=== PATIENT | female | born 1990 | race Caucasian/White ===

== ENCOUNTER → 2020-03-12 14:24 | Outpatient (BNVA) | payer OTHER, SELFPAY | PROVIDERS: PCP Internal Medicine; Visit Provider Surgery ==

== ENCOUNTER 2020-04-03 17:56 | Emergency (ER) | payer OTHER, MEDICAID, SELFPAY ==
--- NOTE | ~2020-04-03 | XR_ITS ---
EXAMINATION: CHEST 1 VIEW CLINICAL INFORMATION: Palpitations. COMPARISON: None. TECHNIQUE: An AP view of the chest is provided. FINDINGS: The cardiac silhouette is not enlarged. The mediastinal and hilar contours are unremarkable. There are neither pleural effusions nor pneumothoraces. There are no consolidations. The osseous structures are unremarkable. XR/XR chest 1V IMPRESSION: No evidence for acute disease.
--- NOTE | 2020-04-03 18:07 | ECG_ITS ---
Test Reason : palpitations Blood Pressure : / mmHG Vent. Rate : 079 BPM Atrial Rate : 079 BPM P-R Int : 126 ms QRS Dur : 098 ms QT Int : 404 ms P-R-T Axes : 061 050 029 degrees QTc Int : 463 ms Normal sinus rhythm with sinus arrhythmia Normal ECG No previous ECGs available Referred By: Generic ED Physician Electronically Signed By:THOMAS CHAVEZ MD
[2020-04-03 19:42] VITALS: BP 127/78; PULSE 81; RESP 18; TEMP 37.1; O2SAT 100; BMI 26.5
--- NOTE | 2020-04-03 21:37 | ED.ARRPALP ---
HPI - Arrhythmia/Palpitations General Chief Complaint: Arrhythmia/Palpitations Stated Complaint: palpitations Time Seen by Provider: 04/03/20 20:50 Source: patient Mode of arrival: ambulatory Limitations: no limitations History of Present Illness HPI narrative: A 29-year-old female otherwise healthy presented palpitation/skipping beats, symptoms started 7-10 days ago, symptoms described as intermittent, symptoms described as mild, nothing triggered the symptoms, nothing make it better, nothing makes it worse, patient admitted to drinking a lot of caffeinated soda during the day, complaining of mild shortness of breath when she has the episodes of palpitation. Patient also has been complaining of back pain related to this pain to long hours sitting at work. No recent trauma or falling. No urinary tract infection symptoms. Related Data Home Medications Medication Instructions Recorded Confirmed norethindrone acetate 1 mg-ethinyl 1 tab PO DAILY 03/16/20 03/16/20 estradiol 20 mcg tablet Previous Rx's Medication Instructions Recorded amoxicillin 875 mg-potassium 1 tab PO BID 10 Days #20 tab 02/13/20 clavulanate 125 mg tablet nitroglycerin 0.4 % (w/w) rectal 1 inch AK BID #30 g 03/12/20 ointment clobetasol 0.05 % topical cream 1 appl TOPICAL BID 7 Days #15 g 03/16/20 Allergies Allergy/AdvReac Type Severity Reaction Status Date / Time No Known Allergies Allergy Verified 04/03/20 19:42 Review of Systems Review of Systems: All other systems are reviewed and are negative Constitutional: Reports as per HPI and Reports no additional constitutional complaints Eyes: Reports as per HPI and Reports no additional eye complaints Reports system reviewed and no additional complaints, except as documented Cardiovascular: Reports as per HPI and Reports no additional cardiovascular complaints Respiratory: Reports as per HPI and Reports no additional respiratory complaints Gastrointestinal: Reports as per HPI and Reports no additional gastrointestinal complaints Genitourinary: Reports no additional female genitourinary complaints Musculoskeletal: Reports no additional musculoskeletal complaints Skin/Breast: Reports system reviewed and no additional complaints, except as docu Psychiatric: Reports no additional psychiatric complaints Endocrine: Reports no additional endocrine complaints Hematologic/Lymphatic: Reports no additional hematologic/lymphatic complaints Allergic/Immunologic: Reports no additional allergic/immunologic complaints Reports system reviewed and no additional complaints, except as documented and Reports Abnormal speech present [facility] Past Medical History Medical History Anal fissure Eczema Social History Social History Alcohol intake: never Smoked in Last 30 Days: No Use of substances other than those prescribed or required for medical reasons: No Any prior treatment program specific to substance use: No Advance Directives: No Advance Directives Information Provided: Yes Physical Exam Vital Signs: Vital Signs: Last Vital Signs Temp 98.7 F 04/03/20 19:42 Pulse 83 04/03/20 22:22 Resp 13 04/03/20 22:22 BP 116/72 04/03/20 22:22 Pulse Ox 100 04/03/20 22:22 Body Mass Index 26.5 Vital signs have been reviewed as appeared to be correct. Blood pressure normal. Heart rate normal. Respiration rate normal. Temperature normal. Oxygen saturation normal. Appearance: Alert. Oriented X3. No acute distress. Head: Normal external exam. Normocephalic. Atraumatic. No Mcmillan signs noted. No raccoon eyes noted Eyes: PERRLA. EOMI. Conjunctiva and sclera normal. Eyelids normal. ENT: TM's Normal. Pharynx normal. Uvula midline. Moist mucous membranes. No trismus noted. No drooling noted. No muffled voice noted. Neck: Normal inspection. Neck supple. FROM. No adenopathy. Thyroid Normal. No meningeal signs. No neck mass noted. CVS: Normal heart rate and rhythm. Heart sound normal. No murmurs noted. Pulses normal throughout. Respiratory: No respiratory distress. Painless inspiration. Breath sounds normal. No wheezes/rales/rhonchi noted. Chest nontender. No accessory muscle usage noted or decreased air movement noted. Abdomen: Soft and nontender. Bowel sounds normal in all 4 quadrants. No distention noted. No organomegaly noted. No visible injury noted. Back: No CVA tenderness. Full range of motion noted. No tenderness, no step-off, no deformity. Skin: Skin warm and dry. Normal skin color. Normal skin turgor. No rashes/lesions/lacerations noted. Extremities: No lower extremity edema. Extremities exhibit normal range of motion. Extremities nontender. Neuro: Oriented X 3. No motor deficit. No sensory deficit. Reflexes normal. Course Course Course Narrative: Assessment and plan. 29-year-old female came in with 7-10 days of chest pain/palpitation. EKG is unremarkable, chest x-ray is unremarkable, labs including troponin/D-dimer unremarkable. Patient has unrelated lower back pain patient think it is related to many hours sitting at work. But no recent trauma or fall. Patient is unable to give urine patient decline symptoms for UTI, patient also declined chance of being . MDM - Arrhythmia/Palpitations Lab Data Attestation: I reviewed the patient's lab results. Result diagrams: 04/03/20 21:40 04/03/20 21:40 Labs: Lab Results 04/03/20 04/03/20 04/03/20 Range/Units 21:40 21:40 21:40 WBC 5.8 (4.8-10.8) X10*3/uL RBC 4.49 (4.20-5.50) X10*6/uL Hgb 13.5 (12.0-16.0) g/dl Hct 39.4 (37-47) % MCV 87.8 (80-98) fL MCH 30.1 (27.0-33.0) pg MCHC 34.3 (31.0-35.0) g/dl RDW 11.6 (11.0-16.0) % Plt Count 171 (160-400) X10*3/uL MPV 12.1 (9.4-12.3) fL Immature Gran % (Auto) 0.2 (0.0-0.4) % Neut % (Auto) 61.6 (45-73) % Lymph % (Auto) 29.8 (20-40) % Latimer % (Auto) 6.9 (2-11) % Eos % (Auto) 1.0 (0-4) % Baso % (Auto) 0.5 (0-2) % Lymph # (Auto) 1.7 (1.2-4.9) X10*3/uL Latimer # (Auto) 0.4 (0.1-1.2) X10*3/uL Eos # (Auto) 0.1 (0.0-0.4) X10*3/uL Baso # (Auto) 0.0 (0.0-0.2) X10*3/uL Abs Immat Gran (auto) 0.01 (0.00-0.03) X10*3/uL Absolute Neuts (auto) 3.6 (2.0-8.3) X10*3/uL Absolute Nucleated RBC 0.000 (0.0-0.012) X10*3/uL Nucleated RBC % (auto) 0.0 (0.0-0.2) /100WBC D-Dimer < 200 NG/ML Sodium 140 (135-145) mmol/L Potassium 3.3 (3.3-5.1) mmol/L Chloride 106 (96-108) mmol/L Carbon Dioxide 24 (22-29) mmol/L Anion Gap 13 (12-20) BUN 5 L (9-16) mg/dL Creatinine 0.65 (0.5-1.4) mg/dL Estim Creat Clear Calc 120.4 Estimated GFR > 60 Random Glucose 101 (60-115) mg/dL Calcium 9.0 (8.4-10.2) mg/dL Troponin I High Sens (<3.5-17.0) ng/L B-Natriuretic Peptide (<100) pg/mL Urine Color Urine Appearance Urine pH (5.0-8.0) Ur Specific [place] (1.005-1.025) Urine Protein (NEG-TRACE) MG/DL Urine Glucose (UA) (NEG) MG/DL Urine Ketones (NEG) MG/DL Urine Blood (NEG) Urine Nitrite (NEG) Ur Leukocyte Esterase (NEG) Urine RBC (0) /HPF Urine WBC (0-4) /HPF Ur Squamous Epith Cells /LPF Urine Bacteria /LPF 04/03/20 04/03/20 Range/Units 21:40 21:40 WBC (4.8-10.8) X10*3/uL RBC (4.20-5.50) X10*6/uL Hgb (12.0-16.0) g/dl Hct (37-47) % MCV (80-98) fL MCH (27.0-33.0) pg MCHC (31.0-35.0) g/dl RDW (11.0-16.0) % Plt Count (160-400) X10*3/uL MPV (9.4-12.3) fL Immature Gran % (Auto) (0.0-0.4) % Neut % (Auto) (45-73) % Lymph % (Auto) (20-40) % Latimer % (Auto) (2-11) % Eos % (Auto) (0-4) % Baso % (Auto) (0-2) % Lymph # (Auto) (1.2-4.9) X10*3/uL [place]imer # (Auto) (0.1-1.2) X10*3/uL Eos # (Auto) (0.0-0.4) X10*3/uL Baso # (Auto) (0.0-0.2) X10*3/uL Abs Immat Gran (auto) (0.00-0.03) X10*3/uL Absolute Neuts (auto) (2.0-8.3) X10*3/uL Absolute Nucleated RBC (0.0-0.012) X10*3/uL Nucleated RBC % (auto) (0.0-0.2) /100WBC D-Dimer NG/ML Sodium (135-145) mmol/L Potassium (3.3-5.1) mmol/L Chloride (96-108) mmol/L Carbon Dioxide (22-29) mmol/L Anion Gap (12-20) BUN (9-16) mg/dL Creatinine (0.5-1.4) mg/dL Estim Creat Clear Calc Estimated GFR Random Glucose (60-115) mg/dL Calcium (8.4-10.2) mg/dL Troponin I High Sens < 3.5 (<3.5-17.0) ng/L B-Natriuretic Peptide < 10 (<100) pg/mL Urine Color YELLOW Urine Appearance CLEAR Urine pH 6.5 (5.0-8.0) Ur Specific [place] 1.010 (1.005-1.025) Urine Protein NEG (NEG-TRACE) MG/DL Urine Glucose (UA) NEG (NEG) MG/DL Urine Ketones 15 (NEG) MG/DL Urine Blood 3+ H (NEG) Urine Nitrite NEG (NEG) Ur Leukocyte Esterase NEG (NEG) Urine RBC 1-4 (0) /HPF Urine WBC 0-2 (0-4) /HPF Ur Squamous Epith Cells TRACE /LPF Urine Bacteria 1+ /LPF Imaging Data Chest x-ray: Radiologist's impression: No evidence for acute disease. ECG Data Interpretation: Normal sinus rhythm at 80 BPM, normal axis deviation, normal intervals, no ST-T changes. Discharge Plan Discharge Clinical Impression: Palpitations Patient Disposition: Home, Self-Care Instructions: Heart Palpitations (ED) Prescriptions: No Action amoxicillin-pot clavulanate 875-125 mg tablet 1 tab PO BID 10 Days Qty: 20 RF: 0 norethindrone ac-eth estradiol 1-20 mg-mcg tablet 1 tab PO DAILY RF: 0 clobetasol 0.05 % cream 1 appl topical BID 7 Days Qty: 15 RF: 1 Rectiv 0.4 % (w/w) ointment 1 inch AK BID Qty: 30 RF: 0 Referrals: Jose Smith MD [Physician] - 2 days
[2020-04-03 21:45] LABS: MANUAL DIFF FLAG NO
[2020-04-03 21:51] LABS: Basophils Percent Auto 0.5 % (0-2); Eosinophils Absolute Auto 0.1 X10*3/uL (0.0-0.4); Hematocrit 39.4 % (37-47); Hemoglobin 13.5 g/dl (12.0-16.0); Imm Gran Abs Auto 0.01 X10*3/uL (0.00-0.03); Imm Gran Pct Auto 0.2 % (0.0-0.4); Lymphocytes Absolute Auto 1.7 X10*3/uL (1.2-4.9); Lymphocytes Percent Auto 29.8 % (20-40); Mean Corpuscular HGB Conc 34.3 g/dl (31.0-35.0); Mean Corpuscular Hemoglobin 30.1 pg (27.0-33.0); Mean Corpuscular Volume 87.8 fL (80-98); Mean Platelet Volume 12.1 fL (9.4-12.3); Monocytes Absolute Auto 0.4 X10*3/uL (0.1-1.2); Monocytes Percent Auto 6.9 % (2-11); Neutrophils Absolute Auto 3.6 X10*3/uL (2.0-8.3); Neutrophils Percent Auto 61.6 % (45-73); Platelet Count 171 X10*3/uL (160-400); Red Blood Count 4.49 X10*6/uL (4.20-5.50); Red Cell Distribution Width 11.6 % (11.0-16.0); White Blood Count 5.8 X10*3/uL (4.8-10.8)
[2020-04-03 21:59] LABS: Glucose Urine UA NEG (NEG); Leukocyte Esterase Urine NEG (NEG); Nitrite Urine NEG (NEG); PH 6.5 (5.0-8.0); Urine Blood 3+ (NEG); Urine Ketones 15 MG/DL (NEG); Urine Protein NEG (NEG-TRACE)
[2020-04-03 22:00] LABS: D Dimer < 200 NG/ML
[2020-04-03 22:10] LABS: Anion Gap 13 (12-20); Blood Urea Nitrogen 5 mg/dL (9-16); Carbon Dioxide 24 mmol/L (22-29); Chloride 106 mmol/L (96-108); Creatinine Clr Calc Pharmacy 120.4; Estimated Glomerular Filt Rate > 60; Glucose Random 101 mg/dL (60-115); Potassium 3.3 mmol/L (3.3-5.1); Sodium 140 mmol/L (135-145)
[2020-04-03 22:11] LABS: Appearance Urine CLEAR; Color Urine YELLOW
[2020-04-03 22:16] LABS: Bacteria Urine 1+ /LPF; Squamous Epithelial Cell Urine TRACE /LPF; WBC Urine 0-2 /HPF (0-4)
[2020-04-03 22:18] LABS: B Type Natriuretic Peptide < 10 pg/mL (<100); Troponin-I High Sensitivity < 3.5 ng/L (<3.5-17.0)
[2020-04-03 22:22] VITALS: BP 116/72; PULSE 83; RESP 13; O2SAT 100
--- NOTE | 2020-04-03 22:23 | PC.NURSE ---
pt has been on monitor since arrival.
--- NOTE | 2020-04-03 23:14 | PC.NURSE ---
PT HAS BEEN EATING AND DRINKING WITHOUT ISSUE.
== END 2020-04-03 23:29 | disposition home or self-care (01) ==
PROVIDERS: Emergency Provider Emergency Medicine; PCP Internal Medicine
DX: R00.2 Palpitations (principal); Z79.3 Long term (current) use of hormonal contraceptives
CPT/HCPCS: 36415; 71045; 80048; 81001; 81003; 83880; 84484; 85025; 85379; 93005; 99283; 99284

== ENCOUNTER 2020-04-05 14:54 | Outpatient (REF) | payer OTHER, MEDICAID, SELFPAY ==
[2020-04-05 17:15] LABS: TSH reflex Free T4 0.42 uIU/mL (0.32-4.0)
[2020-04-06 06:06] LABS: Thyroid Peroxidase Antibodies <1 IU/mL (<9)
== END 2020-04-05 14:55 | disposition home or self-care (01) ==
LOC: HO.HMGCLDS 14:54
PROVIDERS: PCP Internal Medicine; Visit Provider Internal Medicine
DX: R00.2 Palpitations (principal)
CPT/HCPCS: 36415; 84443; 86376

== ENCOUNTER → 2020-04-10 12:40 | Outpatient (BNVA) | payer OTHER, MEDICAID, SELFPAY | PROVIDERS: PCP Internal Medicine; Visit Provider Internal Medicine Cardiovascular Disease ==

== ENCOUNTER → 2020-04-17 07:34 | Outpatient (REF) | payer OTHER, MEDICAID, SELFPAY ==
--- NOTE | 2020-04-17 07:37 | CA_ITS ---
Transthoracic Echocardiogram Patient (Last, First, Middle): May Martinez, Gender: Female Date of : 1990 Age: 29 Procedure Date: 04/17/2020 Procedure Type: Transthoracic Echocardiogram Location: OP Height: 160.02 cm Weight: 68.04 kg BSA: 1.71 m2 Heart Rate: bpm BP: 118 / 56 mmHg Manager Ui: Referring MD: Jose Smith MD Symptoms: R00.2 - Palpitations Study Quality: Good ECG Rhythm: Sinus Conclusions: - The left ventricular systolic function is normal. The visually estimated ejection fraction is between 60-65%. - No obvious valvular pathology seen on this study. Findings Left Ventricle Normal left ventricular cavity size. There is normal left ventricular wall thickness. The left ventricular systolic function is normal. The visually estimated ejection fraction is between 60-65%. There is no evidence of regional wall motion abnormalities. Diastolic function is normal for age. Right Ventricle Normal right ventricular cavity size and systolic function. Atria The left atrium is normal in size. The right atrium is normal in size. Aortic Valve There is a normal trileaflet aortic valve. There is no aortic valve stenosis. There is no aortic valve regurgitation. Mitral Valve The mitral valve appears normal. There is no mitral valve regurgitation. There is no mitral valve stenosis. Pulmonic Valve The pulmonic valve was not well visualized. Tricuspid Valve Normal tricuspid valve structure. There is trace tricuspid valve regurgitation. The pulmonary artery systolic pressure is normal. Great Vessels The aortic annulus, sinuses of valsalva, and asc aorta are normal in size. Venous The inferior vena cava is normal in size and collapses greater than 50% with inspiration. Pericardium/Pleural There is no evidence of pericardial effusion. Prior Study Comparison No prior study available for comparison. Recommendations, Care & Conclusions No obvious valvular pathology seen on this study. Measurements 2D Linear Measurements IVSd: 0.88 0.6-0.9/0.6-1.0 cm LVIDd: 4.68 3.9-5.3/4.2-5.9 cm LVIDd Index: 2.74 2.4-3.2/2.2-3.1 cm/m2 LVIDs: 2.76 2.0-3.6 cm LVPWd: 0.97 0.7-1.1 cm Ao Root: 2.80 2.1-3.5 cm LA Diam: 3.10 2.7-3.8/3.0-4.0 cm LAIDs Index: 1.81 1.5-2.3 cm/m2 LV Mass: 182.71 67-162/88-224 g LV Mass Index: 106.85 43-95/49-115 g/m2 LVOT Diam: 2.30 3.0+(-)1.3 cm Mitral Valve MV Pk E: 0.62 MV PK A: 0.75 MV Decel Time: 116.00 E/A: 0.80 E'Lateral: 12.00 E'Medial: 7.64 E/E' Med: 8.10 E/E' Lat: 5.10 PHT: 34.00 MVA PHT: 6.47 Decel Mcdonough: 5.30 Aortic Valve AoV Pk Enrrique: 1.25 AoV Mn Enrrique: 0.86 AoV VTI: 0.26 AoV Pk Grad: 6.00 Aov Mn Grad: 4.00 CRISSY Cont.VTI: 3.48 LVOT LVOT Pk Enrrique: 1.01 LVOT Mn Enrrique: 0.65 LVOT VTI: 0.22 LVOT Pk Grad: 4.00 LVOT Mn Grad: 2.00 LVOT Diam: 2.30 LVOT Area: 4.15 Diastolic Function MV Pk E: 0.62 MV Pk A: 0.75 E/A: 0.80 E'Medial: 7.64 E/E' Med: 8.10 E' Laterial: 12.00 E/E' Lat: 5.10 Tricuspid Valve TR Pk Enrrique: 1.96 TR Pk Grad: 15.00 RA Press: 3.00 RVSP: 18.00 Great Vessels Aorta Ao Root-2D: 2.80 2.0-3.7 cm Ao Asc: 3.10 2.1-3.4 cm Pulmonary Valve PV Pk Enrrique: 0.96 Peak PV Grad: 4.00 Updated in Other Vendor System with Status of Final Angel Albarran MD electronically signed on 04/17/2020 4:00:50 PM with status of Final
== END ==
LOC: HO.CARD 07:34
PROVIDERS: PCP Internal Medicine; Visit Provider Internal Medicine Cardiovascular Disease
DX: R00.2 Palpitations (principal)
CPT/HCPCS: 93306

== ENCOUNTER → 2020-04-19 10:01 | Outpatient (REF) | payer OTHER, MEDICAID, SELFPAY ==
--- NOTE | 2020-04-23 11:25 | ECG_ITS ---
Hook-up date: 2020-04-19 16:16:00 Duration: 47:59:00 Test Indications: PALPITATIONS Medications: [id number] QRS complexes 83 Ventricular ectopics which represent <1 % of total QRS comp. * Supraventricular ectopics which represent % of total QRS comp. * Paced QRS complexs which represent % of total QRS comp. VENTRICULAR ECTOPY 83 Isolated 0 Bigeminal Cycles 0 Couplets 0 Runs 0 Beats in Runs * Beats LONGEST at * BPM at :: -- * Beats FASTEST at * BPM at :: -- SUPRAVENTRICULAR ECTOPY * Isolated * Couplets * Runs * Beats in Runs * Beats LONGEST at * BPM at :: -- * Beats FASTEST at * BPM at :: -- HEART RATES 45 MIN at 03:43:00 2020-04-20 75 AVG 133 MAX at 10:36:21 2020-04-21 LONGEST RR 1.6000 secs at 05:07:27 2020-04-20 S-T LEVELS Channel 1 - 128 mm at 16:16:00 2020-04-19 - 128 mm at 16:16:00 2020-04-19 Channel 2 - 128 mm at 16:16:00 2020-04-19 - 128 mm at 16:16:00 2020-04-19 Channel 3 - 128 mm at 03:53:51 -- - 128 mm at 03:53:51 Basic rhythm Normal sinus rhythm No long pause or profound bradycardia Rare Premature atrial complexes Patient reported skipped beats correlated with NSR Referred By: Jose Smith Overread By: JOSE SMITH MD
== END ==
LOC: HO.CARD 10:01
PROVIDERS: Visit Provider Internal Medicine Cardiovascular Disease
DX: R00.2 Palpitations (principal)
CPT/HCPCS: 93226

== ENCOUNTER → 2020-04-19 15:11 | Outpatient (BNVA) | payer OTHER, MEDICAID, SELFPAY | PROVIDERS: PCP Internal Medicine; Visit Provider Internal Medicine Cardiovascular Disease ==

== ENCOUNTER → 2020-05-08 10:36 | Outpatient (BNVA) | payer OTHER, MEDICAID, SELFPAY | PROVIDERS: PCP Internal Medicine; Visit Provider Nurse Practitioner Family ==

== ENCOUNTER 2021-03-22 21:54 | Emergency (ER) | payer OTHER, MEDICAID, SELFPAY ==
[2021-03-22 23:06] VITALS: BP 117/78; PULSE 77; RESP 16; TEMP 36.8; O2SAT 100; BMI 26.2
[2021-03-22] MEDS: diphenhydrAMINE HCL 25 MG TABLET PO (23:36)
[2021-03-22] MEDS: Famotidine 20 MG TABLET PO (23:36)
--- NOTE | 2021-03-22 23:53 | ED.ALLEREA ---
HPI - Allergic Reaction General Chief complaint: Allergic Reaction Stated complaint: allegric reaction? Time Seen by Provider: 03/22/21 23:11 Source: patient Mode of arrival: ambulatory History of Present Illness HPI narrative: 30-year-old female with no significant past medical history presenting to the ED complaining lip swelling and tingling s/p eating [place] food around 20:30. Also reports discomfort in throat. Denies intraoral swelling, difficulty breathing, coughing, wheezing, difficulty swallowing/handling secretions, SOB, rash. Denies known allergens/new exposures MD complaint: allergic reaction Onset (ago): hour(s) Related Data Home Medications Medication Instructions Recorded Confirmed norethindrone acetate 1 mg-ethinyl 1 tab PO DAILY 03/16/20 05/08/20 estradiol 20 mcg tablet Previous Rx's Medication Instructions Recorded ondansetron HCl 4 mg tablet 4 mg PO Q12H PRN #14 tab 04/05/20 cetirizine 10 mg capsule (Zyrtec) 10 mg PO DAILY PRN #10 cap 03/22/21 diphenhydramine HCl 25 mg tablet 25 mg PO Q6H PRN #14 tab 03/22/21 (Benadryl Allergy) Allergies Allergy/AdvReac Type Severity Reaction Status Date / Time No Known Allergies Allergy Verified 04/16/20 00:31 Review of Systems Review of Systems: Constitutional: No Fever, No Chills, No Fatigue, No Malaise ENT/Mouth: No Ear Pain, No Nasal Congestion, No Sinus Pain, No Hoarseness, No sore throat, No Rhinorrhea, No Swallowing Difficulty, +lip swelling Eyes: No Eye Pain, No Swelling, No Redness Cardiovascular: No Chest Pain, No SOB, No Dyspnea on Exertion, No Orthopnea, No Edema, No Palpitations Respiratory: No Cough, No Sputum, No Wheezing, No Dyspnea Gastrointestinal: No Nausea, No Vomiting, No Diarrhea, No Constipation, No Abdominal pain Genitourinary: No Dysuria, No Urinary Frequency, No Hematuria, No Flank Pain Musculoskeletal: No joint pain, No Myalgias, No Joint Swelling Skin: No Skin Lesions, No rash Neuro: No Weakness Yes all other systems are reviewed and are negative PMFSH Past Medical History Attestation statement: The following information was validated with the patient. Medical History Anal fissure Eczema Intermittent palpitations Nausea Family History Family History Father No problems noted. Mother No problems noted. Social History Social History Alcohol intake: never Advance Directives: No Advance Directives Information Provided: No Patient : No Physical Exam Vital Signs: Vital Signs: Last Vital Signs Temp 98.3 F 03/22/21 23:06 Pulse 77 03/22/21 23:06 Resp 16 03/22/21 23:06 BP 117/78 03/22/21 23:06 Pulse Ox 100 03/22/21 23:06 BMI result Body Mass Index 26.2 Const: General: cooperative, healthy appearing, no acute distress, alert and awake Orientation/consciousness: patient oriented x3 Limitations: no limitations HENMT: Other: + mild swelling to right side of lower lip. No angioedema, no upper lip involvement. No intraoral involvement, uvula midline, talking in complete sentences Head: Yes normal to inspection Ears: hearing grossly normal bilaterally General nose exam: Normal external nose present Mouth: Normal oral and palatal mucosa present, no audible dysphonia and no drooling Throat: Yes posterior oropharynx normal, Yes tonsils normal, Yes uvula midline, No peritonsillar mass, No uvula laterally displaced and No uvular edema Eyes: General: appearance normal, both eyes and all related structures EOM: EOMs intact bilaterally Neck: Neck: Yes normal visual inspection, Yes no lymphadenopathy, Yes no meningeal signs, Yes trachea midline, Yes supple and No anterior neck swelling Resp: Effort & Inspection: normal respiratory effort, no stridor and not tachypneic Auscultation: clear to auscultation bilaterally, no rales, no rhonchi and no wheezes Cardio: Rate: regular rate Heart sounds: S1 normal heart sound present and S2 normal heart sound present GI: Inspection: Yes normal to inspection Skin: Rashes: no rashes Wounds: no wounds Neuro: General: patient oriented x3 and no meningeal signs Gait exam (Neuro): Normal gait present Extrem: General: Yes normal to inspection MDM - Allergic Reaction MDM Narrative Medical decision making narrative: 30-year-old female with no significant past medical history presenting to the ED complaining lip swelling and tingling s/p eating [place] food around 20:30. On exam vital signs stable, NAD, nontoxic appearing, physical exam as above, mild swelling noted to right side of lower lip. Likely allergic reaction. Plan: P.o. Benadryl/Pepcid. Discussed worrisome signs and symptoms and strict return precautions and need close follow-up with edge bander operator/PCP Differential Diagnosis Differential diagnosis: Likely allergic reaction and urticaria Medical Records Attestation: I reviewed the patient's medical records. Lab Data Attestation: I reviewed the patient's lab results. Discharge Plan Discharge Clinical Impression: Allergic reaction Patient Disposition: Home, Self-Care Instructions: General Allergic Reaction (ED), Allergy Testing (ED) Additional Instructions: Avoid [place] food/the restaurant you ate from [employer] Take Benadryl as needed for allergic reaction symptoms. Be aware this makes you drowsy, do not drive, drink alcohol, or operate anything while taking You may take Zyrtec during the day If symptoms persist or worsen, you have intraoral swelling, difficulty breathing, coughing, wheezing please return to the ED Please follow-up with your doctor and an edge bander operator Prescriptions: New diphenhydramine HCl [Benadryl Allergy] 25 mg tablet 25 mg PO Q6H PRN (Reason: allergic reaction) Qty: 14 0RF Zyrtec 10 mg capsule 10 mg PO DAILY PRN (Reason: allergy symptoms) Qty: 10 0RF No Action norethindrone ac-eth estradiol 1-20 mg-mcg tablet 1 tab PO DAILY 0RF ondansetron HCl 4 mg tablet 4 mg PO Q12H PRN (Reason: nausea and vomiting) Qty: 14 0RF Referrals: Ifeanyi Patel DO [Physician] - 2 days Interventions: ED Discharge Assessment Last Done: 03/23/21 00:12
== END 2021-03-23 00:14 | disposition home or self-care (01) ==
PROVIDERS: Emergency Provider Emergency Medicine; PCP Internal Medicine
DX: T78.1XXA Other adverse food reactions, not elsewhere classified, initial encounter (principal); L50.9 Urticaria, unspecified; X58.XXXA Exposure to other specified factors, initial encounter
CPT/HCPCS: 99283; Q0163

== ENCOUNTER 2021-04-13 13:29 | Emergency (ER) | payer OTHER, MEDICAID, SELFPAY ==
[2021-04-13 13:41] VITALS: BP 153/84; PULSE 82; RESP 16; TEMP 36.9; O2SAT 100; BMI 25.3
[2021-04-13 13:56] LABS: MANUAL DIFF FLAG NO
[2021-04-13 13:58] LABS: Basophils Percent Auto 0.6 % (0-2); Eosinophils Absolute Auto 0.1 X10*3/uL (0.0-0.4); Eosinophils Percent Auto 2.2 % (0-4); Hematocrit 40.3 % (37.0-47.0); Hemoglobin 13.8 g/dl (12.0-16.0); Imm Gran Abs Auto 0.02 X10*3/uL (0.00-0.03); Imm Gran Pct Auto 0.3 % (0.0-0.4); Lymphocytes Absolute Auto 1.3 X10*3/uL (1.2-4.9); Lymphocytes Percent Auto 19.6 % (20-40); Mean Corpuscular HGB Conc 34.2 g/dl (31.0-35.0); Mean Corpuscular Hemoglobin 30.3 pg (27.0-33.0); Mean Corpuscular Volume 88.4 fL (80.0-98.0); Mean Platelet Volume 11.4 fL (9.4-12.3); Monocytes Absolute Auto 0.4 X10*3/uL (0.1-1.2); Monocytes Percent Auto 5.5 % (2-11); Neutrophils Absolute Auto 4.7 x10*3/uL (2.0-8.3); Neutrophils Percent Auto 71.8 % (45-73); Platelet Count 169 X10*3/uL (160-400); Red Blood Count 4.56 X10*6/uL (4.20-5.50); Red Cell Distribution Width 11.4 % (11.0-16.0); White Blood Count 6.5 X10*3/uL (4.8-10.8)
--- NOTE | 2021-04-13 14:10 | ED_ITS ---
HPI - General Adult General Chief complaint: Dizziness Stated complaint: dizzy nausea Time Seen by Provider: 04/13/21 14:10 Source: patient Limitations: no limitations History of Present Illness HPI narrative: This is a 30-year-old female who complains of episodes of dizziness associated with nausea and her heart racing at times off and on for the last few weeks. She does not have constant symptoms. She noted last night for example that she had feeling of dizziness and nausea and then noted her heart was racing. She noted when she was in the shower that her lower legs felt shaky. She is also at times noted weakness in her arms. She states at times the dizziness is like vertigo, with the room spinning but the dizziness is not worsened when she turns her head or moves. Sometimes is more like a lightheadedness. She denies any headache or neck pain. She denies any visual changes, speech difficulty. She denies any ear pain or new tenderness (notes she has had tenderness in the past which preceded her most recent symptoms). She denies any chest pain or shortness of breath Rich denies abdominal pain. She denies any particular new stress recently. She notes she has had palpitations in the past and had a workup about a year ago and was told it might be anxiety related. She wonders if her current symptoms are not anxiety related pain. She denies any undue stress. She is on control pills, denies other medicines. Related Data Home Medications Medication Instructions Recorded Confirmed norethindrone acetate 1 mg-ethinyl 1 tab PO DAILY 03/16/20 05/08/20 estradiol 20 mcg tablet Previous Rx's Medication Instructions Recorded cetirizine 10 mg capsule (Zyrtec) 10 mg PO DAILY PRN #10 cap 03/22/21 lorazepam 1 mg tablet 1 mg PO TID PRN #12 tab 04/13/21 ondansetron 4 mg disintegrating 4 mg PO Q6H PRN #10 tab 04/13/21 tablet Allergies Allergy/AdvReac Type Severity Reaction Status Date / Time No Known Allergies Allergy Verified 04/11/21 14:19 Review of Systems Review of Systems: Yes all other systems are reviewed and are negative Constitutional: Constitutional: Reports as per HPI, Denies fever(s), Denies headache(s) and Reports weakness (In arms) Eyes: Eyes: Reports as per HPI and Reports no additional eye complaints ENT: Reports system reviewed and no additional complaints, except as documented, Reports as per HPI, Denies headache(s), Denies nasal congestion, Denies nasal discharge and Denies sore throat Cardiovascular: Cardiovascular: Reports as per HPI, Denies chest pain, Reports palpitations and Denies dyspnea Respiratory: Respiratory: Reports as per HPI, Denies cough and Denies dyspnea Gastrointestinal: Gastrointestinal: Reports as per HPI, Denies abdominal pain, Denies diarrhea and Denies vomiting Genitourinary: Genitourinary: Reports as per HPI, Denies hematuria, Denies urinary frequency and Denies dysuria Musculoskeletal: Musculoskeletal: Reports no additional musculoskeletal complaints and Denies numbness Integumentary/Breasts: Skin/Breast: Reports as per HPI and Denies rash Neurologic: Reports as per HPI, Denies Abnormal speech present, Denies headache(s), Denies focal weakness, Denies numbness and Reports weakness (In arms) Psychiatric: Psychiatric: Reports no additional psychiatric complaints and Rep orts as per HPI Endocrine: Endocrine: Reports no additional endocrine complaints, Reports as per HPI and Reports palpitations Hematologic/Lymphatic: Hematologic/Lymphatic: Reports no additional hematologic/lymphatic complaints, Reports as per HPI and Reports other (No peripheral edema) [facility] Past Medical History Medical History (Updated 04/13/21 @ 14:52 by Michael Duggan MD) Anal fissure Eczema Intermittent palpitations Surgical History (Updated 04/11/21 @ 14:38 by Bety Ochoa MD) No pertinent past surgical history Family History Family History Father No problems noted. Mother No problems noted. Social History Social History Housing: Apartment Alcohol intake: never Patient Tobacco Use Status: Never used Tobacco e-Cigarette/Vaping Use: Never Used Advance Directives: No Advance Directives Information Provided: No Patient : No service: No Current occupational status: employed Physical Exam ED Vital Signs: Vital Signs - 24 hr 04/13/21 13:41 Temperature 98.4 F Pulse Rate 82 Respiratory Rate 16 Blood Pressure 153/84 H Pulse Oximetry 100 BMI result Body Mass Index 25.3 Const General: no acute distress Orientation/consciousness: patient oriented x3 HENMT Head: Yes normal to inspection Ears: TM's normal bilaterally (Mild cerumen buildup bilaterally, but TMs visible) General nose exam: Normal external nose present Mouth: moist mucous membranes Throat: Yes posterior oropharynx normal, Yes tonsils normal and Yes uvula midline Eyes Eyelids: Yes eyelids normal Conjunctivae: conjunctivae normal Pupils: Equal, round and reactive pupils present Neck Neck: Yes supple Resp Effort & Inspection: normal respiratory effort Auscultation: clear to auscultation bilaterally Cardio Rate: regular rate Rhythm: regular rhythm Heart sounds: S1 normal heart sound present, S2 normal heart sound present, no gallops, no murmurs and no rubs GI Inspection: No distended Palpation (GI): Soft to palpation and nontender Auscultation: normal bowel sounds Skin General skin exam: other (Warm and dry) Neuro General: patient oriented x3, gait normal and CN's II-XI intact bilaterally Cranial nerves: Yes CN's II-XII intact bilaterally, Yes Equal, round and reactive pupils present, Yes Nystagmus not present and Yes Midline tongue p resent Speech: No Abnormal speech present Gait exam (Neuro): Normal gait present Motor exam (neuro): 5/5 motor strength present throughout Extrem General: Yes no pedal edema Psych Affect: normal affect Attitude: cooperative Medical Decision Making [facility] Narrative Medical decision making narrative: 30-year-old female without significant past medical history, has had episodes of dizziness, palpitations, feeling like her heart is racing, and a feeling of shakiness in her legs while in the shower. No lateralizing symptoms. No visual symptoms or abnormal speech. No headache or neck pain. Symptoms not reproduced with head movement. has a normal exam. EKG normal labs unremarkable. Patient is not . No anemia. Given the overall clinical picture, I have low suspicion for a central nervous system pathology or arterial dissection, do not believe imaging is warranted this point. Patient has had anxiety symptoms in the past and believes her current symptoms may be anxiety related. Will treat symptomatically and patient can follow up with her primary care physician. Lab Data Result diagrams: 04/13/21 13:51 04/13/21 13:51 Labs: Lab Results 04/13/21 04/13/21 04/13/21 Range/Units 13:51 13:51 14:17 WBC 6.5 (4.8-10.8) X10*3/uL RBC 4.56 (4.20-5.50) X10*6/uL Hgb 13.8 (12.0-16.0) g/dl Hct 40.3 (37.0-47.0) % MCV 88.4 (80.0-98.0) fL MCH 30.3 (27.0-33.0) pg MCHC 34.2 (31.0-35.0) g/dl RDW 11.4 (11.0-16.0) % Plt Count 169 (160-400) X10*3/uL MPV 11.4 (9.4-12.3) fL Immature Gran % (Auto) 0.3 (0.0-0.4) % Neut % (Auto) 71.8 (45-73) % Lymph % (Auto) 19.6 L (20-40) % [place] % (Auto) 5.5 (2-11) % Eos % (Auto) 2.2 (0-4) % Baso % (Auto) 0.6 (0-2) % Lymph # (Auto) 1.3 (1.2-4.9) X10*3/uL [place] # (Auto) 0.4 (0.1-1.2) X10*3/uL Eos # (Auto) 0.1 (0.0-0.4) X10*3/uL Baso # (Auto) 0.0 (0.0-0.2) X10*3/uL Abs Immat Gran (auto) 0.02 (0.00-0.03) X10*3/uL Absolute Neuts (auto) 4.7 (2.0-8.3) x10*3/uL Absolute Nucleated RBC 0.000 (0.0-0.012) X10*3/uL Nucleated RBC % (auto) 0.0 (0.0-0.2) /100WBC Sodium 141 (135-145) mmol/L Potassium 3.5 (3.3-5.1) mmol/L Chloride 109 H (96-108) mmol/L Carbon Dioxide 26 (22-29) mmol/L Anion Gap 10 L (12-20) BUN 8 L (9-16) mg/dL Creatinine 0.78 (0.5-1.4) mg/dL Estim Creat Clear Calc 97.2 Estimated GFR > 60 Random Glucose 131 H (60-115) mg/dL Calcium 9.5 (8.4-10.2) mg/dL Total Bilirubin 0.4 (0.0-1.0) mg/dL AST 23 (5-31) U/L ALT 36 H (0-31) U/L Alkaline Phosphatase 64 (39-117) U/L Total Protein 6.9 (6.5-8.0) g/dL Albumin 4.3 (3.5-5.0) g/dL Urine Color STRAW Urine Appearance HAZY Urine pH 6.0 (5.0-8.0) Ur Specific [place] <= 1.005 (1.005-1.025) Urine Protein NEG (NEG-TRACE) MG/DL Urine Glucose (UA) NEG (NEG) MG/DL Urine Ketones NEG (NEG) MG/DL Urine Blood NEG (NEG) Urine Nitrite NEG (NEG) Ur Leukocyte Esterase 3+ H (NEG) Urine RBC 0 (0) /HPF Urine WBC 15-29 H (0-4) /HPF Ur Squamous Epith Cells 2+ /LPF Urine Bacteria 2+ /LPF Urine Test (NEGATIVE) 04/13/21 Range/Units 14:18 WBC (4.8-10.8) X10*3/uL RBC (4.20-5.50) X10*6/uL Hgb (12.0-16.0) g/dl Hct (37.0-47.0) % MCV (80.0-98.0) fL MCH (27.0-33.0) pg MCHC (31.0-35.0) g/dl RDW (11.0-16.0) % Plt Count (160-400) X10*3/uL MPV (9.4-12.3) fL Immature Gran % (Auto) (0.0-0.4) % Neut % (Auto) (45-73) % Lymph % (Auto) (20-40) % [place] % (Auto) (2-11) % Eos % (Auto) (0-4) % Baso % (Auto) (0-2) % Lymph # (Auto) (1.2-4.9) X10*3/uL [place] # (Auto) (0.1-1.2) X10*3/uL Eos # (Auto) (0.0-0.4) X10*3/uL Baso # (Auto) (0.0-0.2) X10*3/uL Abs Immat Gran (auto) (0.00-0.03) X10*3/uL Absolute Neuts (auto) (2.0-8.3) x10*3/uL Absolute Nucleated RBC (0.0-0.012) X10*3/uL Nucleated RBC % (auto) (0.0-0.2) /100WBC Sodium (135-145) mmol/L Potassium (3.3-5.1) mmol/L Chloride (96-108) mmol/L Carbon Dioxide (22-29) mmol/L Anion Gap (12-20) BUN (9-16) mg/dL Creatinine (0.5-1.4) mg/dL Estim Creat Clear Calc Estimated GFR Random Glucose (60-115) mg/dL Calcium (8.4-10.2) mg/dL Total Bilirubin (0.0-1.0) mg/dL AST (5-31) U/L ALT (0-31) U/L Alkaline Phosphatase (39-117) U/L Total Protein (6.5-8.0) g/dL Albumin (3.5-5.0) g/dL Urine Color Urine Appearance Urine pH (5.0-8.0) Ur Specific [place] (1.005-1.025) Urine Protein (NEG-TRACE) MG/DL Urine Glucose (UA) (NEG) MG/DL Urine Ketones (NEG) MG/DL Urine Blood (NEG) Urine Nitrite (NEG) Ur Leukocyte Esterase (NEG) Urine RBC (0) /HPF Urine WBC (0-4) /HPF Ur Squamous Epith Cells /LPF Urine Bacteria /LPF Urine Test NEGATIVE (NEGATIVE) ECG Data Attestation: I personally reviewed and interpreted this ECG as follows: Interpretation: Sinus rhythm with a rate of 84. No ST elevation or depression. Normal QRS axis. No ectopy. Normal EKG. Discharge Plan Discharge Clinical Impression: Nausea, Dizziness, Anxiety Patient Disposition: Home, Self-Care Instructions: Acute Nausea and Vomiting (ED), Dizziness (ED), Anxiety (ED) Additional Instructions: Follow-up with your primary care physician. Return for any new or worsened symptoms. If your symptoms persist he may need further evaluation by a neurologist, may need an MRI of your brain. Use the ondansetron and lorazepam as prescribed as needed for nausea and anxiety. Prescriptions: New ondansetron 4 mg tablet,disintegrating 4 mg PO Q6H PRN (Reason: nausea and vomiting) Qty: 10 0RF lorazepam 1 mg tablet 1 mg PO TID PRN (Reason: anxiety) Qty: 12 0RF No Action Zyrtec 10 mg capsule 10 mg PO DAILY PRN (Reason: allergy symptoms) Qty: 10 0RF norethindrone ac-eth estradiol 1-20 mg-mcg tablet 1 tab PO DAILY 0RF
[2021-04-13 14:17] LABS: Alanine Aminotransferase 36 U/L (0-31); Albumin Level 4.3 g/dL (3.5-5.0); Alkaline Phosphatase 64 U/L (39-117); Anion Gap 10 (12-20); Aspartate Amino Transferase 23 U/L (5-31); Bilirubin Total 0.4 mg/dL (0.0-1.0); Blood Urea Nitrogen 8 mg/dL (9-16); Calcium 9.5 mg/dL (8.4-10.2); Carbon Dioxide 26 mmol/L (22-29); Chloride 109 mmol/L (96-108); Creatinine Clr Calc Pharmacy 97.2; Estimated Glomerular Filt Rate > 60; Glucose Random 131 mg/dL (60-115); Potassium 3.5 mmol/L (3.3-5.1); Sodium 141 mmol/L (135-145); Total Protein 6.9 g/dL (6.5-8.0)
--- NOTE | 2021-04-13 14:17 | ECG_ITS ---
Test Reason : dizziness Blood Pressure : / mmHG Vent. Rate : 084 BPM Atrial Rate : 084 BPM P-R Int : 132 ms QRS Dur : 098 ms QT Int : 370 ms P-R-T Axes : 064 061 032 degrees QTc Int : 437 ms Normal sinus rhythm Normal ECG When compared with ECG of 03-APR-2020 18:15, No significant change was found Referred By: Michael Duggan Electronically Signed By:Ari Dean
[2021-04-13 14:32] LABS: Appearance Urine HAZY; Color Urine STRAW; Glucose Urine UA NEG (NEG); Leukocyte Esterase Urine 3+ (NEG); Nitrite Urine NEG (NEG); Specific Gravity - Urine <= 1.005 (1.005-1.025); UACC Culture Trigger YES; Urine Blood NEG (NEG); Urine Ketones NEG (NEG); Urine Protein NEG (NEG-TRACE)
[2021-04-13 14:34] LABS: UPreg QC Valid YES; Urine Pregnancy NEGATIVE (NEGATIVE)
[2021-04-13 14:46] LABS: Bacteria Urine 2+ /LPF; RBC Urine 0 /HPF (0); Squamous Epithelial Cell Urine 2+ /LPF
[2021-04-13] MEDS: Ondansetron ODT 4 MG TAB.RAPDIS TRANSLINGU (15:00)
== END 2021-04-13 15:04 | disposition home or self-care (01) ==
PROVIDERS: Emergency Provider Emergency Medicine; PCP Internal Medicine
DX: R42 Dizziness and giddiness (principal); R11.0 Nausea; F41.9 Anxiety disorder, unspecified
CPT/HCPCS: 36415; 80053; 81001; 81025; 85025; 87086; 93005; 99283; 99285

== ENCOUNTER 2021-05-02 19:30 | Emergency (ER) | payer OTHER, MEDICAID, SELFPAY ==
--- NOTE | 2021-05-02 | ECG_ITS ---
Test Reason : DIZZINESS Blood Pressure : / mmHG Vent. Rate : 082 BPM Atrial Rate : 082 BPM P-R Int : 126 ms QRS Dur : 098 ms QT Int : 376 ms P-R-T Axes : 067 060 039 degrees QTc Int : 439 ms Poor data quality Normal sinus rhythm with sinus arrhythmia Normal ECG When compared with ECG of 13-APR-2021 14:20, No significant change was found Referred By: Generic ED Physician Electronically Signed By:THOMAS CHAVEZ MD
--- NOTE | ~2021-05-02 | CT_ITS ---
EXAMINATION: CT HEAD WITHOUT CONTRAST CLINICAL INFORMATION: 3 weeks c/o imbalance and worsening vision COMPARISON: None TECHNIQUE: Contiguous axial imaging was performed from the skull base to vertex without intravenous administration of contrast. This CT examination was performed using dose optimization techniques as appropriate, variously including the following: *Automated exposure control *Adjustment of mA and/or kV according to patient size (this includes techniques or standardized protocols for targeted exams where dose is matched to indication/reason for exam; i.e. extremities or head) *Use of iterative reconstruction technique DLP: 607 mGy-cm FINDINGS: There is no evidence of acute intracranial hemorrhage or territorial infarction. No abnormal mass effect or midline shift is seen. Cox to white matter differentiation is well preserved. No extra-axial fluid collections are identified. The ventricles are normal in size. There is no abnormal attenuation within the brain parenchyma. The osseous structures and soft tissues are normal. The mastoid air cells and visualized portions of the paranasal sinuses are well aerated. CT/CT head/brain wo con IMPRESSION: No acute intracranial pathology.
[2021-05-02 20:36] VITALS: BP 130/90; PULSE 75; RESP 18; TEMP 36.5; O2SAT 98; BMI 24.6
[2021-05-02 20:57] LABS: MANUAL DIFF FLAG NO
[2021-05-02 20:58] LABS: Basophils Percent Auto 0.6 % (0-2); Eosinophils Absolute Auto 0.2 X10*3/uL (0.0-0.4); Eosinophils Percent Auto 2.2 % (0-4); Hematocrit 39.8 % (37.0-47.0); Hemoglobin 13.5 g/dl (12.0-16.0); Imm Gran Abs Auto 0.02 X10*3/uL (0.00-0.03); Imm Gran Pct Auto 0.3 % (0.0-0.4); Lymphocytes Absolute Auto 1.6 X10*3/uL (1.2-4.9); Lymphocytes Percent Auto 23.9 % (20-40); Mean Corpuscular HGB Conc 33.9 g/dl (31.0-35.0); Mean Corpuscular Hemoglobin 30.3 pg (27.0-33.0); Mean Corpuscular Volume 89.2 fL (80.0-98.0); Mean Platelet Volume 11.6 fL (9.4-12.3); Monocytes Absolute Auto 0.6 X10*3/uL (0.1-1.2); Monocytes Percent Auto 8.4 % (2-11); Neutrophils Absolute Auto 4.4 x10*3/uL (2.0-8.3); Neutrophils Percent Auto 64.6 % (45-73); Platelet Count 160 X10*3/uL (160-400); Red Blood Count 4.46 X10*6/uL (4.20-5.50); Red Cell Distribution Width 11.5 % (11.0-16.0); White Blood Count 6.8 X10*3/uL (4.8-10.8)
[2021-05-02 21:15] LABS: Alanine Aminotransferase 33 U/L (0-31); Albumin Level 4.5 g/dL (3.5-5.0); Alkaline Phosphatase 70 U/L (39-117); Anion Gap 11 (12-20); Aspartate Amino Transferase 21 U/L (5-31); Bilirubin Total 0.6 mg/dL (0.0-1.0); Blood Urea Nitrogen 9 mg/dL (9-16); Calcium 9.5 mg/dL (8.4-10.2); Carbon Dioxide 25 mmol/L (22-29); Chloride 108 mmol/L (96-108); Creatinine Clr Calc Pharmacy 101.2; Estimated Glomerular Filt Rate > 60; Glucose Random 102 mg/dL (60-115); Sodium 140 mmol/L (135-145)
--- NOTE | 2021-05-03 01:31 | ED_ITS ---
HPI - General Adult General Chief complaint: Dizziness Stated complaint: Dizziness/ loss of balance Time Seen by Provider: 05/03/21 01:22 Source: patient Mode of arrival: ambulatory Limitations: no limitations History of Present Illness HPI narrative: Patient comes to emergency room complaining of intermittent episodes of dizziness. Patient states that her symptoms have been for the last 3 weeks. Patient complaining of episodes of nausea. Patient states that she has noticed that her vision is more blurry than usual when she is not wearing glasses. However, when she puts her glasses on her vision is just fine. Related Data Home Medications Medication Instructions Recorded Confirmed norethindrone acetate 1 mg-ethinyl 1 tab PO DAILY 05/03/21 05/03/21 estradiol 20 mcg tablet (Junel) Allergies Allergy/AdvReac Type Severity Reaction Status Date / Time No Known Allergies Allergy Verified 05/02/21 20:36 Review of Systems Review of Systems: Constitutional : No Weight loss, No Fever, No Chills, No Night Sweats, No Fatigue, No Malaise ENT/Mouth : No Hearing loss, No Ear Pain, No Nasal Congestion, No Sinus Pain, No Hoarseness, No sore throat, No Rhinorrhea, No Swallowing Difficulty Eyes: No Eye Pain, No Swelling, No Redness, No Foreign Body, No Discharge, No Vision Changes Cardiovascular : No Chest Pain, No SOB, No Dyspnea on Exertion, No Orthopnea, No Edema, No Palpitations Respiratory : No Cough, No Sputum, No Wheezing, No Smoke Exposure, No Dyspnea Gastrointestinal : Complaining ofNausea, No Vomiting, No Diarrhea, No Constipation, No abdominal Pain, No Hematochezia, No Melena Genitourinary : no irregular bleeding, No Dysuria, No Urinary Frequency, No Hematuria, No Urinary Incontinence, No Urgency, No Flank Pain, No Urinary Flow Changes, No Hesitancy Musculoskeletal : No joint pain, No Myalgias, No Joint Swelling Skin : No Skin Lesions, No rash Neuro : No Weakness, No Numbness, No Paresthesias, No Loss of Consciousness, complaining of intermittent episodes of dizziness, imbalance . Psych : No Anxiety/Panic, No Depression, No SI/HI/AH/VH, No Social Issues, Heme/Lymph: No Bruising, No Bleeding,No Lymphadenopathy Endocrine : No Polyuria, No Polydipsia, No Temperature Intolerance [facility] Past Medical History Medical History Anal fissure Eczema Intermittent lightheadedness Intermittent palpitations Otalgia Surgical History No pertinent past surgical history Family History Family History Father No problems noted. Mother No problems noted. Social History Social History Housing: Apartment Alcohol intake: never Patient Tobacco Use Status: Never used Tobacco e-Cigarette/Vaping Use: Never Used Use of substances other than those prescribed or required for medical reasons: No Advance Directives: No Patient : No service: No Current occupational status: employed Physical Exam ED Vital Signs: Vital Signs - 24 hr 05/02/21 20:36 05/03/21 02:00 Temperature 97.7 F 97.7 F Pulse Rate 75 75 Respiratory Rate 18 18 Blood Pressure 130/90 H 130/90 H Pulse Oximetry 98 98 BMI result Body Mass Index 24.6 Const Other: Appearance: Alert. Oriented X3. No acute distress. Well-appearing Eyes: Pupils equal, round and reactive to light. ENT: Pharynx normal. Neck: Normal inspection. Neck supple. No lymph nodes noted. No crepitus CVS: Normal heart rate and rhythm. Pulses normal. Normal S1 and S2 Respiratory: No respiratory distress. Breath sounds normal. No Wheezing. No rales Abdomen: Soft and nontender. No rigidity. No distention. Skin: Skin warm and dry. Normal skin color. Normal skin turgor. Extremities: No lower extremity edema. No Lacerations. No Rash Neuro: Oriented X 3. No motor deficit. No sensory deficit. Moving all extremities. No slurred speech. CN 2 through 12 grossly intact. Patient has a normal , steady gait Psych: calm, cooperative, normal affect Course Course Course Narrative: At this time, patient has no symptoms. Patient had a workup couple of weeks ago, all are unchanged. This time, we will go ahead and order a CT scan. Patient states that she has had Holter monitors in the past, they were nondiagnostic. Also, I discussed with the patient that she will likely need to follow-up with Neurology. Patient does not have any clear pattern of symptoms, however she is in the right age for MS. Head CT shows no acute pathology. Patient states that she has enough meclizine tablets at home Medical Decision Making Lab Data Result diagrams: 05/02/21 20:51 05/02/21 20:51 Labs: Lab Results 05/02/21 05/02/21 05/02/21 Range/Units 20:51 20:51 20:51 WBC 6.8 (4.8-10.8) X10*3/uL RBC 4.46 (4.20-5.50) X10*6/uL Hgb 13.5 (12.0-16.0) g/dl Hct 39.8 (37.0-47.0) % MCV 89.2 (80.0-98.0) fL MCH 30.3 (27.0-33.0) pg MCHC 33.9 (31.0-35.0) g/dl RDW 11.5 (11.0-16.0) % Plt Count 160 (160-400) X10*3/uL MPV 11.6 (9.4-12.3) fL Immature Gran % (Auto) 0.3 (0.0-0.4) % Neut % (Auto) 64.6 (45-73) % Lymph % (Auto) 23.9 (20-40) % [place] % (Auto) 8.4 (2-11) % Eos % (Auto) 2.2 (0-4) % Baso % (Auto) 0.6 (0-2) % Lymph # (Auto) 1.6 (1.2-4.9) X10*3/uL [place] # (Auto) 0.6 (0.1-1.2) X10*3/uL Eos # (Auto) 0.2 (0.0-0.4) X10*3/uL Baso # (Auto) 0.0 (0.0-0.2) X10*3/uL Abs Immat Gran (auto) 0.02 (0.00-0.03) X10*3/uL Absolute Neuts (auto) 4.4 (2.0-8.3) x10*3/uL Absolute Nucleated RBC 0.000 (0.0-0.012) X10*3/uL Nucleated RBC % (auto) 0.0 (0.0-0.2) /100WBC Sodium 140 (135-145) mmol/L Potassium 4.0 (3.3-5.1) mmol/L Chloride 108 (96-108) mmol/L Carbon Dioxide 25 (22-29) mmol/L Anion Gap 11 L (12-20) BUN 9 (9-16) mg/dL Creatinine 0.74 (0.5-1.4) mg/dL Estim Creat Clear Calc 101.2 Estimated GFR > 60 Random Glucose 102 (60-115) mg/dL Calcium 9.5 (8.4-10.2) mg/dL Total Bilirubin 0.6 (0.0-1.0) mg/dL AST 21 (5-31) U/L ALT 33 H (0-31) U/L Alkaline Phosphatase 70 (39-117) U/L Troponin I High Sens < 3.5 (<3.5-17.0) ng/L Total Protein 7.0 (6.5-8.0) g/dL Albumin 4.5 (3.5-5.0) g/dL Beta HCG, Quant < 2 mIU/mL Discharge Plan Discharge Clinical Impression: Dizziness Patient Disposition: Home, Self-Care Instructions: Dizziness (ED) Additional Instructions: Please follow-up with your primary care physician tomorrow. If you have any worsening or new symptoms, please return to the emergency room or call 911 Prescriptions: No Action norethindrone ac-eth estradiol [02/28 (21)] 1-20 mg-mcg tablet 1 tab PO DAILY 0RF Referrals: Clemencia Eckert MD [Physician] - 2 days
[2021-05-03 01:50] LABS: Troponin-I High Sensitivity < 3.5 ng/L (<3.5-17.0)
[2021-05-03 02:00] VITALS: BP 130/90; PULSE 75; RESP 18; TEMP 36.5; O2SAT 98
[2021-05-03 02:07] LABS: HCG Quantitative < 2 mIU/mL
== END 2021-05-03 03:42 | disposition home or self-care (01) ==
PROVIDERS: Emergency Provider Emergency Medicine; PCP Internal Medicine
DX: R42 Dizziness and giddiness (principal)
CPT/HCPCS: 36415; 70450; 80053; 84484; 84702; 85025; 93005; 99284; 99285

== ENCOUNTER 2021-05-24 09:46 | Outpatient (RCR) | payer OTHER, MEDICAID, SELFPAY | END 2021-06-24 10:20 | disposition home or self-care (01) | LOC: HO.PT 09:46 | PROVIDERS: PCP Internal Medicine; Visit Provider Internal Medicine | DX: R42 Dizziness and giddiness (principal) | CPT/HCPCS: 97161 ==

== ENCOUNTER 2022-01-15 06:39 | Outpatient (REF) | payer OTHER, MEDICAID, SELFPAY ==
[2022-01-15 12:11] LABS: Alanine Aminotransferase 14 U/L (0-31); Aspartate Amino Transferase 13 U/L (5-31); Cholesterol 137 mg/dL; Glucose Fasting 84 mg/dL (60-99); HDL Cholesterol 48 mg/dL; LDL Cholesterol Calculated 82 mg/dl; Triglycerides 38 mg/dL; Vitamin D 25-OH Total 19.1 ng/mL (>30)
== END 2022-01-15 06:40 | disposition home or self-care (01) ==
LOC: HO.HMGCLDS 06:39
PROVIDERS: PCP Internal Medicine; Visit Provider Internal Medicine
DX: Z00.01 Encounter for general adult medical examination with abnormal findings (principal)
CPT/HCPCS: 36415; 80061; 82306; 82947; 84450; 84460

== ENCOUNTER 2022-01-22 12:03 | Emergency (ER) | payer OTHER, MEDICAID, SELFPAY ==
--- NOTE | ~2022-01-22 | XR_ITS ---
EXAMINATION: XR CHEST CLINICAL INFORMATION: Chest pain COMPARISON: None TECHNIQUE: 2 views of the chest were obtained. FINDINGS: No significant abnormality is noted involving the heart, lungs, mediastinum, bony thorax or soft tissues. XR/XR chest 2V IMPRESSION: Unremarkable examination.
[2022-01-22 13:09] VITALS: BP 147/100; PULSE 70; RESP 18; TEMP 36.7; O2SAT 99; BMI 22.4
--- NOTE | 2022-01-22 13:09 | ED_ITS ---
HPI - General Adult General Chief complaint: General Medical <Mala Polo NP - Last Filed: 01/22/22 13:11> Stated complaint: Lightheaded/Chest burning/Nausea <Mala Polo NP - Last Filed: 01/22/22 13:11> Time Seen by Provider: 01/22/22 19:14 <Mala Polo NP - Last Filed: 01/22/22 13:11> Source: patient <Olivier Hernández MD - Last Filed: 01/22/22 19:50> Mode of arrival: ambulatory <Olivier Hernández MD - Last Filed: 01/22/22 19:50> Limitations: no limitations <Olivier Hernández MD - Last Filed: 01/22/22 19:50> History of Present Illness HPI narrative: Patient with multiple complaints palpitation episode lasting from seconds to minutes feel dizzy nauseated for couple of weeks had similar complaints last year when she had detailed workup including Holter monitoring which was negative except showing few PACs patient denies any depression or stress <Olivier Hernández MD - Last Filed: 01/22/22 19:50> Related Data Home medications: Previous Rx's Medication Instructions Recorded omeprazole 20 mg capsule,delayed 20 mg PO DAILY #30 caps 01/16/22 release <Mala Polo NP - Last Filed: 01/22/22 13:11> Allergies/adverse reactions: Allergies Allergy/AdvReac Type Severity Reaction Status Date / Time No Known Allergies Allergy Verified 01/16/22 16:53 <Mala Polo NP - Last Filed: 01/22/22 13:11> Review of Systems Review of Systems: Yes all other systems are reviewed and are negative <Olivier Hernández MD - Last Filed: 01/22/22 19:50> PMFSH Past Medical History Medical History: Medical History Anal fissure Eczema Intermittent lightheadedness Intermittent palpitations Otalgia <Mala Polo NP - Last Filed: 01/22/22 13:11> Surgical History: Surgical History No pertinent past surgical history <Mala Polo NP - Last Filed: 01/22/22 13:11> Family History Family History: Family History Father No problems noted. Mother No problems noted. <Mala Polo NP - Last Filed: 01/22/22 13:11> Social History Social History: Social History Housing: Apartment Alcohol intake: never Patient Tobacco Use Status: Never used Tobacco Smoked in Last 30 Days: No e-Cigarette/Vaping Use: Never Used Use of substances other than those prescribed or required for medical reasons: No Advance Directives: No Patient : No service: No Current occupational status: employed Cognitive needs: No Hearing needs: No Vision needs: No <Mala Polo NP - Last Filed: 01/22/22 13:11> Physical Exam ED Vital Signs: Vital Signs - 24 hr 01/22/22 13:09 01/22/22 19:23 Temperature 98.1 F 98.3 F Pulse Rate 70 67 Respiratory Rate 18 12 Blood Pressure 147/100 H 124/91 H Pulse Oximetry 99 100 Oxygen Delivery Method Room Air Room Air BMI result Body Mass Index 22.4 <Mala Polo NP - Last Filed: 01/22/22 13:11> Vital Signs - 24 hr 01/22/22 13:09 01/22/22 19:23 Temperature 98.1 F 98.3 F Pulse Rate 70 67 Respiratory Rate 18 12 Blood Pressure 147/100 H 124/91 H Pulse Oximetry 99 100 Oxygen Delivery Method Room Air Room Air BMI result Body Mass Index 22.4 <Olivier Hernández MD - Last Filed: 01/22/22 19:50> Appearance: Alert. Oriented X3. No acute distress. Seems to be anxious Eyes: PERRLA, No Nystagmus ENT: Pharynx normal. Oral Mucosa moist Neck: Normal inspection. Neck supple. CVS: Normal heart rate and rhythm. Pulses normal. Respiratory: No respiratory distress. Equal air entry bilateral, no wheezing/rales/rhonchi Abdomen: Soft and nontender. Bowel sounds are present, no mass palpable, no CVA tenderness Skin: Skin warm and dry. Normal skin color. Normal skin turgor. Extremities: No lower extremity edema. No calf tenderness Neuro: Oriented X 3. No motor deficit. No sensory deficit.No cerebellar signs , cranial nerves II-XII intact <Olivier Hernández MD - Last Filed: 01/22/22 19:50> Course Course Course Narrative: This is a rapid medical exam. Deferred additional HPI, ROS, PE to primary provider. 31 yo female healthy here for one week of chest discomfort, palpitations, lightheadedness, nausea x 1 week. Will check labs, EKG, CXR, covid/flu/rsv testing. VSS. <Mala Polo NP - Last Filed: 01/22/22 13:11> Medical Decision Making Medical Decision Making [facility] Narrative: Patient nonspecific complaints orthostatic is normal labs are stable TSH is normal cardiac monitoring showing heart rate between 75-80. Will discharge patient home advised to follow with PCP <Olivier Hernández MD - Last Filed: 1 03/25/21 19:50> Lab Data [facility] Lab Attestation statement: I reviewed the patient's lab results. <Olivier Hernández MD - Last Filed: 01/22/22 19:50> Result Diagrams: : 01/22/22 13:24 01/22/22 13:24 <Mala Polo NP - Last Filed: 01/22/22 13:11> Labs: Lab Results 01/22/22 01/22/22 01/22/22 Range/Units 13:24 13:24 13:24 WBC 4.9 (4.8-10.8) X10*3/uL RBC 4.49 (4.20-5.50) X10*6/uL Hgb 13.4 (12.0-16.0) g/dl Hct 38.9 (37.0-47.0) % MCV 86.6 (80.0-98.0) fL MCH 29.8 (27.0-33.0) pg MCHC 34.4 (31.0-35.0) g/dl RDW 11.6 (11.0-16.0) % Plt Count 172 (160-400) X10*3/uL MPV 11.8 (9.4-12.3) fL Immature Gran % (Auto) 0.2 (0.0-0.4) % Neut % (Auto) 68.7 (45-73) % Lymph % (Auto) 23.3 (20-40) % [place] % (Auto) 6.6 (2-11) % Eos % (Auto) 0.6 (0-4) % Baso % (Auto) 0.6 (0-2) % Lymph # (Auto) 1.1 L (1.2-4.9) X10*3/uL [place] # (Auto) 0.3 (0.1-1.2) X10*3/uL Eos # (Auto) 0.0 (0.0-0.4) X10*3/uL Baso # (Auto) 0.0 (0.0-0.2) X10*3/uL Abs Immat Gran (auto) 0.01 (0.00-0.03) X10*3/uL Absolute Neuts (auto) 3.3 (2.0-8.3) x10*3/uL Absolute Nucleated RBC 0.000 (0.0-0.012) X10*3/uL Nucleated RBC % (auto) 0.0 (0.0-0.2) /100WBC PT (10.0-13.1) SEC INR (0.9-1.1) Sodium 139 (135-145) mmol/L Potassium 3.9 (3.3-5.1) mmol/L Chloride 104 (96-108) mmol/L Carbon Dioxide 26 (22-29) mmol/L Anion Gap 13 (12-20) BUN 6 L (9-16) mg/dL Creatinine 0.66 (0.5-1.4) mg/dL Estim Creat Clear Calc 104.0 Estimated GFR > 60 Random Glucose 87 (60-115) mg/dL Calcium 9.7 (8.4-10.2) mg/dL Total Bilirubin 0.8 (0.0-1.0) mg/dL Direct Bilirubin 0.3 (0.0-0.5) mg/dL AST 17 (5-31) U/L ALT 18 (0-31) U/L Alkaline Phosphatase 75 (39-117) U/L Troponin I High Sens < 3.5 (<3.5-17.0) ng/L Total Protein 7.7 (6.5-8.0) g/dL Albumin 5.1 H (3.5-5.0) g/dL TSH 0.49 (0.32-4.0) uIU/mL Influenza Type A (PCR) (Negative) Influenza Type B (PCR) (Negative) RSV RNA Qual (PCR) (Negative) SARS-CoV-2 RNA (RT-PCR) (Negative) 01/22/22 01/22/22 Range/Units 13:24 13:24 WBC (4.8-10.8) X10*3/uL RBC (4.20-5.50) X10*6/uL Hgb (12.0-16.0) g/dl Hct (37.0-47.0) % MCV (80.0-98.0) fL MCH (27.0-33.0) pg MCHC (31.0-35.0) g/dl RDW (11.0-16.0) % Plt Count (160-400) X10*3/uL MPV (9.4-12.3) fL Immature Gran % (Auto) (0.0-0.4) % Neut % (Auto) (45-73) % Lymph % (Auto) (20-40) % [place] % (Auto) (2-11) % Eos % (Auto) (0-4) % Baso % (Auto) (0-2) % Lymph # (Auto) (1.2-4.9) X10*3/uL [place] # (Auto) (0.1-1.2) X10*3/uL Eos # (Auto) (0.0-0.4) X10*3/uL Baso # (Auto) (0.0-0.2) X10*3/uL Abs Immat Gran (auto) (0.00-0.03) X10*3/uL Absolute Neuts (auto) (2.0-8.3) x10*3/uL Absolute Nucleated RBC (0.0-0.012) X10*3/uL Nucleated RBC % (auto) (0.0-0.2) /100WBC PT 12.7 (10.0-13.1) SEC INR 1.1 (0.9-1.1) Sodium (135-145) mmol/L Potassium (3.3-5.1) mmol/L Chloride (96-108) mmol/L Carbon Dioxide (22-29) mmol/L Anion Gap (12-20) BUN (9-16) mg/dL Creatinine (0.5-1.4) mg/dL Estim Creat Clear Calc Estimated GFR Random Glucose (60-115) mg/dL Calcium (8.4-10.2) mg/dL Total Bilirubin (0.0-1.0) mg/dL Direct Bilirubin (0.0-0.5) mg/dL AST (5-31) U/L ALT (0-31) U/L Alkaline Phosphatase (39-117) U/L Troponin I High Sens (<3.5-17.0) ng/L Total Protein (6.5-8.0) g/dL Albumin (3.5-5.0) g/dL TSH (0.32-4.0) uIU/mL Influenza Type A (PCR) NEGATIVE (Negative) Influenza Type B (PCR) NEGATIVE (Negative) RSV RNA Qual (PCR) NEGATIVE (Negative) SARS-CoV-2 RNA (RT-PCR) NEGATIVE (Negative) <Mala Polo, PARTH - Last Filed: 01/22/22 13:11> Lab Results 01/22/22 01/22/22 01/22/22 Range/Units 13:24 13:24 13:24 WBC 4.9 (4.8-10.8) X10*3/uL RBC 4.49 (4.20-5.50) X10*6/uL Hgb 13.4 (12.0-16.0) g/dl Hct 38.9 (37.0-47.0) % MCV 86.6 (80.0-98.0) fL MCH 29.8 (27.0-33.0) pg MCHC 34.4 (31.0-35.0) g/dl RDW 11.6 (11.0-16.0) % Plt Count 172 (160-400) X10*3/uL MPV 11.8 (9.4-12.3) fL Immature Gran % (Auto) 0.2 (0.0-0.4) % Neut % (Auto) 68.7 (45-73) % Lymph % (Auto) 23.3 (20-40) % [place] % (Auto) 6.6 (2-11) % Eos % (Auto) 0.6 (0-4) % Baso % (Auto) 0.6 (0-2) % Lymph # (Auto) 1.1 L (1.2-4.9) X10*3/uL [place] # (Auto) 0.3 (0.1-1.2) X10*3/uL Eos # (Auto) 0.0 (0.0-0.4) X10*3/uL Baso # (Auto) 0.0 (0.0-0.2) X10*3/uL Abs Immat Gran (auto) 0.01 (0.00-0.03) X10*3/uL Absolute Neuts (auto) 3.3 (2.0-8.3) x10*3/uL Absolute Nucleated RBC 0.000 (0.0-0.012) X10*3/uL Nucleated RBC % (auto) 0.0 (0.0-0.2) /100WBC PT (10.0-13.1) SEC INR (0.9-1.1) Sodium 139 (135-145) mmol/L Potassium 3.9 (3.3-5.1) mmol/L Chloride 104 (96-108) mmol/L Carbon Dioxide 26 (22-29) mmol/L Anion Gap 13 (12-20) BUN 6 L (9-16) mg/dL Creatinine 0.66 (0.5-1.4) mg/dL Estim Creat Clear Calc 104.0 Estimated GFR > 60 Random Glucose 87 (60-115) mg/dL Calcium 9.7 (8.4-10.2) mg/dL Total Bilirubin 0.8 (0.0-1.0) mg/dL Direct Bilirubin 0.3 (0.0-0.5) mg/dL AST 17 (5-31) U/L ALT 18 (0-31) U/L Alkaline Phosphatase 75 (39-117) U/L Troponin I High Sens < 3.5 (<3.5-17.0) ng/L Total Protein 7.7 (6.5-8.0) g/dL Albumin 5.1 H (3.5-5.0) g/dL TSH 0.49 (0.32-4.0) uIU/mL Influenza Type A (PCR) (Negative) Influenza Type B (PCR) (Negative) RSV RNA Qual (PCR) (Negative) SARS-CoV-2 RNA (RT-PCR) (Negative) 01/22/22 01/22/22 Range/Units 13:24 13:24 WBC (4.8-10.8) X10*3/uL RBC (4.20-5.50) X10*6/uL Hgb (12.0-16.0) g/dl Hct (37.0-47.0) % MCV (80.0-98.0) fL MCH (27.0-33.0) pg MCHC (31.0-35.0) g/dl RDW (11.0-16.0) % Plt Count (160-400) X10*3/uL MPV (9.4-12.3) fL Immature Gran % (Auto) (0.0-0.4) % Neut % (Auto) (45-73) % Lymph % (Auto) (20-40) % [place] % (Auto) (2-11) % Eos % (Auto) (0-4) % Baso % (Auto) (0-2) % Lymph # (Auto) (1.2-4.9) X10*3/uL [place] # (Auto) (0.1-1.2) X10*3/uL Eos # (Auto) (0.0-0.4) X10*3/uL Baso # (Auto) (0.0-0.2) X10*3/uL Abs Immat Gran (auto) (0.00-0.03) X10*3/uL Absolute Neuts (auto) (2.0-8.3) x10*3/uL Absolute Nucleated RBC (0.0-0.012) X10*3/uL Nucleated RBC % (auto) (0.0-0.2) /100WBC PT 12.7 (10.0-13.1) SEC INR 1.1 (0.9-1.1) Sodium (135-145) mmol/L Potassium (3.3-5.1) mmol/L Chloride (96-108) mmol/L Carbon Dioxide (22-29) mmol/L Anion Gap (12-20) BUN (9-16) mg/dL Creatinine (0.5-1.4) mg/dL Estim Creat Clear Calc Estimated GFR Random Glucose (60-115) mg/dL Calcium (8.4-10.2) mg/dL Total Bilirubin (0.0-1.0) mg/dL Direct Bilirubin (0.0-0.5) mg/dL AST (5-31) U/L ALT (0-31) U/L Alkaline Phosphatase (39-117) U/L Troponin I High Sens (<3.5-17.0) ng/L Total Protein (6.5-8.0) g/dL Albumin (3.5-5.0) g/dL TSH (0.32-4.0) uIU/mL Influenza Type A (PCR) NEGATIVE (Negative) Influenza Type B (PCR) NEGATIVE (Negative) RSV RNA Qual (PCR) NEGATIVE (Negative) SARS-CoV-2 RNA (RT-PCR) NEGATIVE (Negative) <Olivier Hernández MD - Last Filed: 01/22/22 19:50> Discharge Plan Discharge Clinical Impression: Intermittent lightheadedness, History of palpitations <Mala Polo NP - Last Filed: 01/22/22 13:11> Patient Disposition: Home, Self-Care <Mala Polo NP - Last Filed: 01/22/22 13:11> Instructions: Heart Palpitations (ED), Lightheadedness (ED) <Mala Polo NP - Last Filed: 01/22/22 13:11> Additional Instructions: Drink Plenty of fluids 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
--- NOTE | 2022-01-22 13:10 | ECG_ITS ---
Test Reason : lightheaded Blood Pressure : / mmHG Vent. Rate : 076 BPM Atrial Rate : 076 BPM P-R Int : 130 ms QRS Dur : 098 ms QT Int : 394 ms P-R-T Axes : 076 082 053 degrees QTc Int : 443 ms Normal sinus rhythm with sinus arrhythmia Incomplete right bundle branch block Borderline ECG When compared with ECG of 02-MAY-2021 20:41, No significant change was found Referred By: Mala Polo Electronically Signed By:LAI ALMEIDA
[2022-01-22 13:32] LABS: MANUAL DIFF FLAG NO
[2022-01-22 13:33] LABS: Basophils Percent Auto 0.6 % (0-2); Eosinophils Percent Auto 0.6 % (0-4); Hematocrit 38.9 % (37.0-47.0); Hemoglobin 13.4 g/dl (12.0-16.0); Imm Gran Abs Auto 0.01 X10*3/uL (0.00-0.03); Imm Gran Pct Auto 0.2 % (0.0-0.4); Lymphocytes Absolute Auto 1.1 X10*3/uL (1.2-4.9); Lymphocytes Percent Auto 23.3 % (20-40); Mean Corpuscular HGB Conc 34.4 g/dl (31.0-35.0); Mean Corpuscular Hemoglobin 29.8 pg (27.0-33.0); Mean Corpuscular Volume 86.6 fL (80.0-98.0); Mean Platelet Volume 11.8 fL (9.4-12.3); Monocytes Absolute Auto 0.3 X10*3/uL (0.1-1.2); Monocytes Percent Auto 6.6 % (2-11); Neutrophils Absolute Auto 3.3 x10*3/uL (2.0-8.3); Neutrophils Percent Auto 68.7 % (45-73); Platelet Count 172 X10*3/uL (160-400); Red Blood Count 4.49 X10*6/uL (4.20-5.50); Red Cell Distribution Width 11.6 % (11.0-16.0); White Blood Count 4.9 X10*3/uL (4.8-10.8)
--- OUTSIDE RECORDS SUMMARY | 2022-01-22 13:33 | XMS_ITS | Continuity of Care Document ---
:1990 Author Organization [facility] ic Address [address] [place] [address]- Care Team Providers Name Role Phone Shan Sanchez MD Primary Care Physician [place] [facility] [place] 07/18/[address] [address]- Allergies, Adverse Reactions, Alerts Substance Reaction Severity Status NKA Active Immunizations Given and Recorded Vaccine Date Status Refusal Reason tetanus/diphtheria/pertussis, acel(Tdap)1 08/09/11 Given influenza virus vaccine, inactivated 01/01/11 Given 1Admin Note: VIS 03/04/2011 Medications Loestrin 02/28 20 mcg-1 mg oral tablet 1 tablet, By Mouth, Daily, # 28 tablet, 6 Refills, Maintenance, 06/18/20 15:55:00 EDT, Tablet, [facility], 1 tablet By Mouth Daily,x28 days, 162, cm, 01/30/20 8:17:00 EST, Height Start Date: 06/18/20 Stop Date: 12/31/20 Status: Ordered Problem List Condition Effective Dates Status Health Status Informant Atypical squamous cells of Active undetermined significance (ASCUS) on Papanicolaou smear of cervix(Confirmed) Healthy adult(Confirmed) Active Social History Social History Type Response Smoking Status Never smoker entered on: 04/15/16 Sex
--- OUTSIDE RECORDS SUMMARY | 2022-01-22 13:33 | XMS_ITS | Continuity of Care Document ---
:1990 Author Organization [facility] ic Address [address] [place] [address]- Care Team Providers Name Role Phone Laura GAMEZ, Shan Hunt Primary Care Physician Encounter [facility] Date(s): 12/05/20 - 01/04/[address] [address]- Allergies, Adverse Reactions, Alerts Substance Reaction Severity Status NKA Active Immunizations Given and Recorded Vaccine Date Status Refusal Reason tetanus/diphtheria/pertussis, acel(Tdap)1 08/09/11 Given influenza virus vaccine, inactivated 01/01/11 Given 1Admin Note: VIS 03/04/2011 Medications Loestrin 02/28 20 mcg-1 mg oral tablet 1 tablet, By Mouth, Daily, # 28 tablet, 6 Refills, Maintenance, 12/04/20 10:27:00 EDT, Tablet, [facility], 1 tablet By Mouth Daily,x28 days, 162, cm, 01/30/20 8:17:00 EST, Height Start Date: 12/04/20 Stop Date: 06/18/21 Status: Ordered Problem List Condition Effective Dates Status Health Status Informant Atypical squamous cells of Active undetermined significance (ASCUS) on Papanicolaou smear of cervix(Confirmed) Healthy adult(Confirmed) Active Social History Social History Type Response Smoking Status Never smoker entered on: 04/15/16 Sex
--- OUTSIDE RECORDS SUMMARY | 2022-01-22 13:33 | XMS_ITS | Continuity of Care Document ---
:1990 Author Organization [facility] ic Address [address] [place] [address]- Care Team Providers Name Role Phone Laura GAMEZ, Shan Hunt Primary Care Physician Encounter [facility] [place] Date(s): 05/06/19 - 05/16/[address] [address]- [facility] Attending Physician: Jordin Georges Admitting Physician: Jordin Georges Referring Physician: Jordin Goerges Allergies, Adverse Reactions, Alerts Substance Reaction Severity Status NKA Active Immunizations Given and Recorded Vaccine Date Status Refusal Reason tetanus/diphtheria/pertussis, acel(Tdap)1 08/09/11 Given influenza virus vaccine, inactivated 01/01/11 Given 1Admin Note: VIS 03/04/2011 Medications Loestrin 21 02/28 20 mcg-1 mg oral tablet 1 tablet, By Mouth, Daily, # 28 tablet, 11 Refills, Maintenance, 01/18/19 17:17:47 EST, Tablet, 1 tablet By Mouth Daily,x28 days, 162, cm, 08/13/17 12:37:29 EDT, Height Start Date: 01/18/19 Stop Date: 12/20/19 Status: Ordered Problem List Condition Effective Dates Status Health Status Informant Atypical squamous cells of Active undetermined significance (ASCUS) on Papanicolaou smear of cervix(Confirmed) Healthy adult(Confirmed) Active Social History Social History Type Response Smoking Status Never smoker entered on: 04/15/16 Sex
--- OUTSIDE RECORDS SUMMARY | 2022-01-22 13:33 | XMS_ITS | Continuity of Care Document ---
:1990 Author Organization [facility] [employer] [facility] Address [address] [place] [address], [address] [place] [address]- Care Team Providers Name Role Phone Shan Sanchez MD Primary Care Physician Encounter [facility] [place] Date(s): 02/01/20 - 03/02/20 [facility] [employer] [address] [place] [address], [address] [place] [id number] Allergies, Adverse Reactions, Alerts Substance Reaction Severity Status NKA Active Immunizations Given and Recorded Vaccine Date Status Refusal Reason tetanus/diphtheria/pertussis, acel(Tdap)1 08/09/11 Given influenza virus vaccine, inactivated 01/01/11 Given 1Admin Note: VIS 03/04/2011 Medications Loestrin 02/28 20 mcg-1 mg oral tablet 1 tablet, By Mouth, Daily, # 28 tablet, 6 Refills, Maintenance, 12/12/19 9:13:00 EST, Tablet, [facility], 1 tablet By Mouth Daily,x28 days Start Date: 12/12/19 Stop Date: 06/25/20 Status: Ordered Problem List Condition Effective Dates Status Health Status Informant Atypical squamous cells of Active undetermined significance (ASCUS) on Papanicolaou smear of cervix(Confirmed) Healthy adult(Confirmed) Active Social History Social History Type Response Smoking Status Never smoker entered on: 04/15/16 Sex
--- OUTSIDE RECORDS SUMMARY | 2022-01-22 13:33 | XMS_ITS | Continuity of Care Document ---
:1990 Author Organization [facility] ic Address [address] [place] [address]- Care Team Providers Name Role Phone Laura GAMEZ, Shan Hunt Primary Care Physician Encounter [facility] Date(s): 12/04/20 - 01/03/[address] [address]- Allergies, Adverse Reactions, Alerts Substance Reaction Severity [...]
--- OUTSIDE RECORDS SUMMARY | 2022-01-22 13:33 | XMS_ITS | Continuity of Care Document ---
:1990 Author Organization [facility] ic Address [address] [place] [address]- Care Team Providers Name Role Phone Shan Sanchez MD Primary Care Physician [place] [facility] [place](s[place] 01/14/19 - 06/04/[address] [address]- [facility] Attending Physician: Not on Staff, Attending MD Referring Physician: Shan Sanchez MD Allergies, Adverse Reactions, Alerts Substance Reaction Severity [...]
--- OUTSIDE RECORDS SUMMARY | 2022-01-22 13:34 | XMS_ITS | Continuity of Care Document ---
:1990 Author Organization [facility] ic Address [address] [place] [address]- Care Team Providers Name Role Phone Shan Sanchez MD Primary Care Physician Encounter [facility] [place] Date(s): 01/11/21 - 04/24/[address] [address] Attending Physician: Not on Staff, Attending MD Allergies, Adverse Reactions, Alerts No Known Allergies Immunizations Given and Recorded Vaccine Date Status [...]
--- OUTSIDE RECORDS SUMMARY | 2022-01-22 13:34 | XMS_ITS | Continuity of Care Document ---
:1990 Author Organization [facility] ic Address [address] [place] [address]- Care Team Providers Name Role Phone Shan Sanchez MD Primary Care Physician [place] [facility] [place](s): 05/03/19 - 06/05/[address] [address]- [facility] Attending Physician: Vilma Owen CNM Admitting Physician: Vilma Owen CNM Referring Physician: Shan Sanchez MD Allergies, Adverse [...]
--- OUTSIDE RECORDS SUMMARY | 2022-01-22 13:34 | XMS_ITS | Continuity of Care Document ---
:1990 Author Organization [facility] ic Address [address] [place] [address]- Care Team Providers Name Role Phone Shan Sanchez MD Primary Care Physician Encounter [facility] [place] Date(s): 05/24/21 - 06/23/[address] [address]- Attending Physician: Jordin Georges Admitting Physician: Jordin Georges Referring Physician: AdmtrJordin Allergies, Adverse Reactions, Alerts No Known Allergies [...]
--- OUTSIDE RECORDS SUMMARY | 2022-01-22 13:34 | XMS_ITS | Continuity of Care Document ---
:1990 Author Organization [facility] ic Address [address] [place] [address]- Care Team Providers Name Role Phone Laura GAMEZ, Shan Hunt Primary Care Physician Encounter [facility] Date(s): 12/05/20 - 01/04/[address] [address]- Allergies, Adverse Reactions, Alerts Substance Reaction Severity [...]
--- OUTSIDE RECORDS SUMMARY | 2022-01-22 13:34 | XMS_ITS | Continuity of Care Document ---
:1990 Author Organization [facility] ic Address [address] [place] [address]- Care Team Providers Name Role Phone Shan Sanchez MD Primary Care Physician [place] [facility] [place] [facility] [place]/14/[place] - 02/13/[address] [address]- Allergies, Adverse Reactions, Alerts Substance Reaction Severity [...]
--- OUTSIDE RECORDS SUMMARY | 2022-01-22 13:34 | XMS_ITS | Continuity of Care Document ---
:1990 Author Organization [facility] ic Address [address] [place] [address]- Care Team Providers Name Role Phone Shan Sanchez MD Primary Care Physician Encounter [facility] [place] Date(s): 12/19/20 - 01/18/[address] [address]- Allergies, Adverse Reactions, Alerts Substance Reaction Severity [...]
--- OUTSIDE RECORDS SUMMARY | 2022-01-22 13:34 | XMS_ITS | Continuity of Care Document ---
:1990 Author Organization [facility] ic Address [address] [place] [address]- Care Team Providers Name Role Phone Shan Sanchez MD Primary Care Physician Encounter [facility] [place] Date(s): 12/28/20 - 01/27/[address] [address]- Allergies, Adverse Reactions, Alerts Substance Reaction Severity [...]
--- OUTSIDE RECORDS SUMMARY | 2022-01-22 13:34 | XMS_ITS | Continuity of Care Document ---
:1990 Author Organization [facility] ic Address [address] [place] [address]- Care Team Providers Name Role Phone Shan Sanchez MD Primary Care Physician Encounter [facility] [place] Date(s): 01/30/20 - 02/29/[address] [address]- Attending Physician: Jordin Georges Admitting Physician: Jordin Georges Referring Physician: AdmtrJordin Allergies, Adverse Reactions, Alerts Substance Reaction Severity [...]
--- OUTSIDE RECORDS SUMMARY | 2022-01-22 13:34 | XMS_ITS | Continuity of Care Document ---
:1990 Author Organization [facility] ic Address [address] [place] [address]- Care Team Providers Name Role Phone Laura GAMEZ, Shan Hunt Primary Care Physician Encounter [facility] Date(s): 12/03/20 - 03/31/[address] [address]- Attending Physician: Not on Staff, Attending MD [...]
--- OUTSIDE RECORDS SUMMARY | 2022-01-22 13:34 | XMS_ITS | Continuity of Care Document ---
:1990 Author Organization [facility] ic Address [address] [place] [address]- Care Team Providers Name Role Phone Shan Sanchez MD Primary Care Physician Encounter [facility] [place] Date(s): 11/14/19 - 02/09/[address] [address]- Attending Physician: Not on Staff, Attending MD Allergies, Adverse Reactions, Alerts Substance Reaction [...]
--- OUTSIDE RECORDS SUMMARY | 2022-01-22 13:34 | XMS_ITS | Continuity of Care Document ---
:1990 Author Organization [facility] ic Address [address] [place] [address]- Care Team Providers Name Role Phone Gabriela GAMEZ, Bety Amaro Primary Care Physician [phone] Encounter [facility] [place] Date(s): 08/16/21 - 09/15/[address] [address]- Allergies, Adverse Reactions, Alerts No Known Allergies [...]
[2022-01-22 13:42] LABS: INTERNATIONAL NORM RATIO 1.1 (0.9-1.1); Prothrombin Time 12.7 SEC (10.0-13.1)
[2022-01-22 13:58] LABS: Troponin-I High Sensitivity < 3.5 ng/L (<3.5-17.0)
[2022-01-22 14:03] LABS: Alanine Aminotransferase 18 U/L (0-31); Albumin Level 5.1 g/dL (3.5-5.0); Alkaline Phosphatase 75 U/L (39-117); Anion Gap 13 (12-20); Aspartate Amino Transferase 17 U/L (5-31); Bilirubin Direct 0.3 mg/dL (0.0-0.5); Blood Urea Nitrogen 6 mg/dL (9-16); Calcium 9.7 mg/dL (8.4-10.2); Carbon Dioxide 26 mmol/L (22-29); Chloride 104 mmol/L (96-108); Estimated Glomerular Filt Rate > 60; Glucose Random 87 mg/dL (60-115); Potassium 3.9 mmol/L (3.3-5.1); Sodium 139 mmol/L (135-145); Total Protein 7.7 g/dL (6.5-8.0)
[2022-01-22 14:22] LABS: Influenza A PCR NEGATIVE (Negative); Influenza B PCR NEGATIVE (Negative); Resp Syncy Virus RNA Qual PCR NEGATIVE (Negative); SARS COV2 PCR INHOUSE NEGATIVE (Negative)
[2022-01-22 14:27] LABS: Bilirubin Total 0.8 mg/dL (0.0-1.0); Thyroid Stimulating Hormone 0.49 uIU/mL (0.32-4.0)
[2022-01-22 19:23] VITALS: BP 124/91; PULSE 67; RESP 12; TEMP 36.8; O2SAT 100
--- NOTE | 2022-01-22 19:27 | PC.NURSE ---
Pt aox4. Breaths are even and unlabored. NSR on monitor with HR 67. Abd soft and non tender with active bowel sounds in all quadrants. No edema noted. Pt reports headache 8/10, and has not eaten any food today. At this time pt denies chest pain/palpitations but had two previous episodes of I felt my heart racing. Lab work and EKG done. Pt awaiting provider evaluation and aware of plan. Will continue to monitor.
[2022-01-22 20:02] VITALS: BP 124/82; PULSE 71
--- NOTE | 2022-01-22 20:03 | PC.NURSE ---
Discharge instructions reviewed with pt. Pt verbalizes understanding.
== END 2022-01-22 20:03 | disposition home or self-care (01) ==
PROVIDERS: Nurse Practitioner Family; Emergency Provider Internal Medicine; PCP Internal Medicine
DX: R42 Dizziness and giddiness (principal); R00.2 Palpitations; Z20.822 Contact with and (suspected) exposure to COVID-19
CPT/HCPCS: 0241U; 36415; 71046; 80048; 80076; 84443; 84484; 85025; 85610; 93005; 99283; 99284

== ENCOUNTER 2022-02-06 09:25 | Outpatient (AMB) | payer OTHER, MEDICAID, SELFPAY ==
--- NOTE | 2022-02-06 09:28 | A.OFFPC_ITS ---
Vital Signs 02/06/22 09:33 Height 5 ft 3 in Weight 124 lb 8 oz BMI 22.0 BP 102/60 Blood Pressure Location Lt brachial Position Sitting Pulse 87 Pulse Source Pulse Oximeter Pulse Oximetry (%) 99 Oxygen Delivery Method Room Air Intake Visit Reasons: [facility] [place] Allergies No Known Allergies Allergy (Verified 02/06/22 09:52) Medication List - Last Reconciled 02/06/22 by Bety Ochoa MD omeprazole 20 mg PO DAILY Tobacco use date assessed: 01/16/22 [facility] Medical History Anal fissure Eczema Intermittent lightheadedness Intermittent palpitations Otalgia Surgical History No pertinent past surgical history Family History Father No problems noted. Mother No problems noted. Social History Housing: Apartment Alcohol intake: never Patient Tobacco Use Status: Never used Tobacco e-Cigarette/Vaping Use: Never Used service: No Current occupational status: employed Cognitive needs: No Hearing needs: No Vision needs: No Questionnaire PHQ-9 Over the last 2 weeks, how often have you been bothered by any of the following problems? 1. Little interest or pleasure in doing things: not at all 2. Feeling down, depressed, or hopeless: not at all 3. Trouble falling or staying asleep, or sleeping too much: not at all 4. Feeling tired or having little energy: not at all 5. Poor appetite or overeating: not at all 6. Feeling bad about yourself - or that you are a failure or have let yourself or your family down: not at all 7. Trouble concentrating on things, such as reading the newspaper or watching television: not at all 8. Moving or speaking so slowly that other people could have noticed. Or the opposite - being so fidgety or restless that you have been moving around a lot more than usual: not at all 9. Thoughts that you would be better off or of hurting yourself in some way: not at all Total score: 0 Source: Developed by Drs. Luis Reeves, María Elena Woo, Lalo García and colleagues, with an educational almaz from [employer]. Thrive Questionnaire Date Thrive assessed: 02/06/22 I am a: Patient What is your living situation today?: I have a steady place to live Within the past 12 months, did the food you bought not last and you didn't have the money to get more?: Never true Within the past 12 months, did you worry whether your food would run out before you got money to buy more?: Never true Do you have trouble paying for medicines?: No Do you have trouble getting transportation to medical appointments?: No Do you have trouble paying your heating and electricity bill?: No Do you have trouble taking care of your child, family member or friend?: No Do you have trouble with day-to-day activities such as bathing, preparing meals, shopping, managing finances, etc.?: No Are you currently unemployed and looking for a job?: No Are you interested in more education?: No AUDIT C Alcohol Use Questionnaire (AUDIT-C) 1. How often do you have a drink containing alcohol?: Never 3. How often do you have six or more drinks on one occasion?: Never Total Score: 0 JAMISON-7 AMB Questionnaire JAMISON-7 Date JAMISON - 7 assessed: 02/06/22 Feeling nervous, anxious, or on edge: 1 = Several days Not being able to stop or control worryin = Several days Worrying too much about different things: 1 = Several days Trouble relaxin = Several days Being so restless that it is hard to sit still: 0 = Not at all Becoming easily annoyed or irritable: 0 = Not at all Feeling afraid as if something awful might happen: 0 = Not at all Total JAMISON-7 score (0-4 normal; 5-9 mild; 10-14 moderate; 15-21 severe): 4 Source: Developed by Drs. Luis Reeves, Lalo Aldana and colleagues, with an educational almaz from [employer]. Physical exam (Primary Care) Vital Signs: Last Vital Signs Pulse 87 02/06/22 09:33 BP 102/60 02/06/22 09:33 Pulse Ox 99 02/06/22 09:33 Oxygen Delivery Method Room Air 02/06/22 09:33 BMI result Body Mass Index 22.0 Tobacco/Smoking Status: Tobacco use Status Tobacco use date assessed 01/16/22 02/06/22 09:28 Patient Tobacco Use Status Never used Tobacco 02/06/22 09:28 e-Cigarette/Vaping Use Never Used 02/06/22 09:28 PHQ-9: PHQ-9 Score PHQ-9: Total score 0 02/06/22 09:53 Thrive Assessment: Date of Thrive Assessment Date Thrive assessed 02/06/22 02/06/22 09:42 Results AMB Rapid Strep AMB Rapid Strep Negative Last Edit by Fabi Lai CMA on 02/06/22 09 :46 Results Reviewed Results Reviewed: Laboratory Last Values Strep Scn Rapid Clinic Negative 02/06/22 09:45 Assessment and Plan Assessment & Plan (1) Sore throat: Code(s): J02.9 - Acute pharyngitis, unspecified (2) Headache: Code(s): R51.9 - Headache, unspecified Plan: Already has an appointment with neurology at [facility] for June 2022, advised to request to be placed on a cancellation list to be seen. Orders: Orders AMB Rapid Strep Screen Today Z13.9 - Encounter for screening, unspecified Medications: New butalbital-acetaminophen 25-325 mg 1 tab PO Q4H PRN 10 tabs 0RF headache Magic Mouthwash Diphen/Lido/Antacid 1:1:1 Lidocaine Viscous 2 % 80mL; diphenhydramine 12.5 mg/5 mL 80mL; aluminum-mag hydrox-simeth [id number]/5mL 80mL- swish and spit , do not swallow 5 mL PO .swish and spit PRN 240 mL 0RF sore throat Coding Level of Care Code Est Pt Level 3 (57023) Diagnoses Sore throat J02.9 Headache R51.9
[2022-02-06 09:33] VITALS: BP 102/60; PULSE 87; O2SAT 99; BMI 22.0
== END 2022-02-06 12:03 | disposition home or self-care (01) ==
LOC: HO.HMGC 09:25
PROVIDERS: PCP Internal Medicine; Visit Provider Internal Medicine
DX: J02.9 Acute pharyngitis, unspecified (principal); R51.9 Headache, unspecified
CPT/HCPCS: 99499

== ENCOUNTER 2022-09-13 14:06 | Emergency (ER) | payer OTHER, MEDICAID, SELFPAY ==
--- NOTE | 2022-09-13 14:09 | ECG_ITS ---
Test Reason : TACHY Blood Pressure : / mmHG Vent. Rate : 073 BPM Atrial Rate : 073 BPM P-R Int : 122 ms QRS Dur : 102 ms QT Int : 402 ms P-R-T Axes : 069 076 052 degrees QTc Int : 442 ms Normal sinus rhythm Incomplete right bundle branch block Borderline ECG When compared with ECG of 22-JAN-2022 13:16, No significant change was found Referred By: Sasha Mejia Electronically Signed By:LAI ALMEIDA
[2022-09-13 14:16] VITALS: BP 127/76; PULSE 70; RESP 18; TEMP 36.3; O2SAT 98; BMI 20.5
--- NOTE | 2022-09-13 14:17 | ED_ITS ---
HPI - General Adult General Chief complaint: Dizziness Stated complaint: shakey lightheaded rapid heartbeat Time Seen by Provider: 09/13/22 19:46 Source: patient and old records reviewed Mode of arrival: ambulatory Limitations: no limitations History of Present Illness HPI narrative: was with son taye standing then felt heart race and she felt dizzy and then somewhat nauseated and like she was going to pass out but no CP/SOB and she has had this before multiple times with negative workup - feels drained for 30 min after, no heavy vag bleeding or GIB not on OCPs. has been worked up by neurology and endocrinology negative holter in 2020 complaint: palpitations, intermittent dizziness Onset (ago): hour(s) (1 hour prior to arrival ) Location: head and chest Radiation: non-radiation Severity: moderate Quality: other (feels dizzy and then lightheaded and heart will race but does not check rate) Pain Consistency: now resolved Relieving factors: none Exacerbating factors: other (cannot think of precipitating event) Associated symptoms: malaise and other (notes she is being worked up for weight loss of 39lbs since coming off OCPs) Treatments prior to arrival: none Related Data Previous Rx's Medication Instructions Recorded cholecalciferol (vitamin D3) 1,250 1,250 mcg PO QWEEK 3 months #13 04/18/22 mcg (50,000 unit) capsule caps Allergies Allergy/AdvReac Type Severity Reaction Status Date / Time No Known Allergies Allergy Verified 09/13/22 14:20 Review of Systems Review of Systems: Constitutional : No Fever, No Chills, No Fatigue ENT/Mouth : No sore throat, No Rhinorrhea Eyes: No Eye Pain, No Swelling, No Redness Cardiovascular : No Chest Pain, No SOB, No Dyspnea on Exertion, pos palpitations Respiratory : No Cough, No Sputum Gastrointestinal : No Nausea, No Vomiting, No Diarrhea, No abdominal Pain Genitourinary : No Dysuria, No Urinary Frequency, No Hematuria, Musculoskeletal : No joint pain, No Myalgias, No Joint Swelling Skin : No Skin Lesions, No rash Neuro : No Weakness, No Numbness, pos Dizziness, no Headache Psych : No Anxiety/Panic, No Depression All other systems reviewed and are negative [facility] Past Medical History Attestation statement: The following information was validated with the patient. Medical History Anal fissure Eczema Epigastric pain Intermittent lightheadedness Intermittent palpitations Otalgia Surgical History No pertinent past surgical history Family History Family History Father No problems noted. Mother No problems noted. Social History Social History Housing: Apartment Alcohol intake: never Patient Tobacco Use Status: Never used Tobacco Smoked in Last 30 Days: No e-Cigarette/Vaping Use: Never Used Use of substances other than those prescribed or required for medical reasons: No Advance Directives: No Advance Directives Information Provided: No Patient : No service: No Current occupational status: employed Cognitive needs: No Hearing needs: No Vision needs: Yes Physical Exam ED Vital Signs: Vital Signs - 24 hr 09/13/22 14:16 09/13/22 16:55 Temperature 97.4 F 97.2 F Pulse Rate 70 64 Respiratory Rate 18 18 Blood Pressure 127/76 111/62 Pulse Oximetry 98 98 Oxygen Delivery Method Room Air Room Air BMI result Body Mass Index 20.5 Appearance: Alert. Oriented X3. No acute distress. Eyes: Pupils equal, round and reactive to light. ENT: Pharynx normal. Neck: Normal inspection. Neck supple. CVS: Normal heart rate and rhythm. Pulses normal. Respiratory: No respiratory distress. Breath sounds normal. Abdomen: Soft and nontender. Skin: Skin warm and dry. Normal skin color. Normal skin turgor. Extremities: No lower extremity edema. No calf ttp Neuro: Oriented X 3. No motor deficit. No sensory deficit. Course Course Course Narrative: This is an RME: Additional HPI, ROS, PE not included below will be deferred to primary provider. Patient is a 31 year old female presenting to the ER for evaluation of shakiness, lightheadedness werey day for one week. Reports palpitations, CP, numbness to her lower jaw, that has been occuring 3 times over the past week and self resolving after about 30 minutes. Symptom onset while at rest. States that she had a similar episode approximately 1 year ago, had ED visit, cardiology, and neurology workup without any identifiable cause by her reports. Plan: labs, EKG, U/A Medical Decision Making Medical Decision Making [facility] Narrative: 31 yo female with no sig PMH other than months of odd symptoms of intermittent lightheadedness and weight loss but no preceding illness did come off OCPs. 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 no abdominal mass or pain, no new night sweats CBC other than mildly low plts can be managed as outpatient has dexxcom on too which has been reading normal Differential Diagnosis Differential Diagnoses: The differential diagnosis associated with the presentation includes orthostatics, thyroid disease, hypoglycemia episodes Admission/Observation Consideration of admission/observation: Escalation of care including admission/observation considered labs and VS stable has dexxcom on and appropriate outpatient follow up can be managed as outpatient Lab Data [facility] Lab Attestation statement: I reviewed the patient's lab results. 09/13/22 15:33 09/13/22 15:33 Labs: Lab Results 09/13/22 09/13/22 09/13/22 Range/Units 15:33 15:33 15:33 WBC 8.5 (4.8-10.8) X10*3/uL RBC 4.13 L (4.20-5.50) X10*6/uL Hgb 12.8 (12.0-16.0) g/dl Hct 37.3 (37.0-47.0) % MCV 90.3 (80.0-98.0) fL MCH 31.0 (27.0-33.0) pg MCHC 34.3 (31.0-35.0) g/dl RDW 11.3 (11.0-16.0) % Plt Count 156 L (160-400) X10*3/uL MPV 11.1 (9.4-12.3) fL Immature Gran % (Auto) 0.4 (0.0-0.4) % Neut % (Auto) 85.5 H (45-73) % Lymph % (Auto) 8.4 L (20-40) % [place] % (Auto) 4.2 (2-11) % Eos % (Auto) 1.1 (0-4) % Baso % (Auto) 0.4 (0-2) % Lymph # (Auto) 0.7 L (1.2-4.9) X10*3/uL [place] # (Auto) 0.4 (0.1-1.2) X10*3/uL Eos # (Auto) 0.1 (0.0-0.4) X10*3/uL Baso # (Auto) 0.0 (0.0-0.2) X10*3/uL Abs Immat Gran (auto) 0.03 (0.00-0.03) X10*3/uL Absolute Neuts (auto) 7.3 (2.0-8.3) x10*3/uL Absolute Nucleated RBC 0.000 (0.0-0.012) X10*3/uL Nucleated RBC % (auto) 0.0 (0.0-0.2) /100WBC PT 13.5 H (11.1-13.3) SEC INR 1.1 (0.9-1.1) Sodium 142 (135-145) mmol/L Potassium 4.0 (3.3-5.1) mmol/L Chloride 110 H (96-108) mmol/L Carbon Dioxide 24 (22-29) mmol/L Anion Gap 12 (12-20) BUN 7 L (9-16) mg/dL Creatinine 0.74 (0.5-1.4) mg/dL Estim Creat Clear Calc 92.7 Estimated GFR > 60 Random Glucose 98 (60-115) mg/dL Calcium 9.5 (8.4-10.2) mg/dL Total Bilirubin 0.7 (0.0-1.0) mg/dL AST 16 (5-31) U/L ALT 17 (0-31) U/L Alkaline Phosphatase 82 (39-117) U/L Troponin I High Sens (<3.5-17.0) ng/L Total Protein 6.9 (6.5-8.0) g/dL Albumin 4.5 (3.5-5.0) g/dL Lipase 11 (8-78) U/L TSH 0.72 (0.32-4.0) uIU/mL 09/13/22 Range/Units 15:33 WBC (4.8-10.8) X10*3/uL RBC (4.20-5.50) X10*6/uL Hgb (12.0-16.0) g/dl Hct (37.0-47.0) % MCV (80.0-98.0) fL MCH (27.0-33.0) pg MCHC (31.0-35.0) g/dl RDW (11.0-16.0) % Plt Count (160-400) X10*3/uL MPV (9.4-12.3) fL Immature Gran % (Auto) (0.0-0.4) % Neut % (Auto) (45-73) % Lymph % (Auto) (20-40) % [place] % (Auto) (2-11) % Eos % (Auto) (0-4) % Baso % (Auto) (0-2) % Lymph # (Auto) (1.2-4.9) X10*3/uL [place] # (Auto) (0.1-1.2) X10*3/uL Eos # (Auto) (0.0-0.4) X10*3/uL Baso # (Auto) (0.0-0.2) X10*3/uL Abs Immat Gran (auto) (0.00-0.03) X10*3/uL Absolute Neuts (auto) (2.0-8.3) x10*3/uL Absolute Nucleated RBC (0.0-0.012) X10*3/uL Nucleated RBC % (auto) (0.0-0.2) /100WBC PT (11.1-13.3) SEC INR (0.9-1.1) Sodium (135-145) mmol/L Potassium (3.3-5.1) mmol/L Chloride (96-108) mmol/L Carbon Dioxide (22-29) mmol/L Anion Gap (12-20) BUN (9-16) mg/dL Creatinine (0.5-1.4) mg/dL Estim Creat Clear Calc Estimated GFR Random Glucose (60-115) mg/dL Calcium (8.4-10.2) mg/dL Total Bilirubin (0.0-1.0) mg/dL AST (5-31) U/L ALT (0-31) U/L Alkaline Phosphatase (39-117) U/L Troponin I High Sens < 2.7 (<3.5-17.0) ng/L Total Protein (6.5-8.0) g/dL Albumin (3.5-5.0) g/dL Lipase (8-78) U/L TSH (0.32-4.0) uIU/mL Independent Interpretation I performed an independent interpretation of an: EKG Interpretation: Rate:73 Rhythm: NSR [place]: normal Normal P waves. Normal ASCENCION. Normal QRS complex. ST T wave : normal no LANG qTC: normal prior studies: no acute ischemia The study has been interpreted contemporaneously by me. . External Record Review External record reviewed: Office record and Prior outpatient labs Discharge Plan Discharge Clinical Impression: Intermittent lightheadedness Patient Disposition: Home, Self-Care Instructions: Lightheadedness (ED) Additional Instructions: increase your liquid intake - mix gatorade in water. i would also increase your salt a little bit at this time until your see your doctor. if you feel symptoms try to wear your watch and catch your heart rate - drink something and eat something with salt. if you have a blood pressure machine check it. given your prior work up what might be next is another holter test and possibly TILT table test for orthostatic hypotension. return for chest pain trouble breathing worsening symptoms or any other concerns. Prescriptions: No Action cholecalciferol (vitamin D3) 1,250 mcg (50,000 unit) capsule 1,250 mcg PO QWEEK 90 Days Qty: 13 0RF
[2022-09-13 15:37] LABS: MANUAL DIFF FLAG NO
[2022-09-13 15:38] LABS: Basophils Percent Auto 0.4 % (0-2); Eosinophils Absolute Auto 0.1 X10*3/uL (0.0-0.4); Eosinophils Percent Auto 1.1 % (0-4); Hematocrit 37.3 % (37.0-47.0); Hemoglobin 12.8 g/dl (12.0-16.0); Imm Gran Abs Auto 0.03 X10*3/uL (0.00-0.03); Imm Gran Pct Auto 0.4 % (0.0-0.4); Lymphocytes Absolute Auto 0.7 X10*3/uL (1.2-4.9); Lymphocytes Percent Auto 8.4 % (20-40); Mean Corpuscular HGB Conc 34.3 g/dl (31.0-35.0); Mean Corpuscular Volume 90.3 fL (80.0-98.0); Mean Platelet Volume 11.1 fL (9.4-12.3); Monocytes Absolute Auto 0.4 X10*3/uL (0.1-1.2); Monocytes Percent Auto 4.2 % (2-11); Neutrophils Absolute Auto 7.3 x10*3/uL (2.0-8.3); Neutrophils Percent Auto 85.5 % (45-73); Platelet Count 156 X10*3/uL (160-400); Red Blood Count 4.13 X10*6/uL (4.20-5.50); Red Cell Distribution Width 11.3 % (11.0-16.0); White Blood Count 8.5 X10*3/uL (4.8-10.8)
[2022-09-13 15:48] LABS: INTERNATIONAL NORM RATIO 1.1 (0.9-1.1); Prothrombin Time 13.5 SEC (11.1-13.3)
[2022-09-13 16:15] LABS: Alanine Aminotransferase 17 U/L (0-31); Albumin Level 4.5 g/dL (3.5-5.0); Alkaline Phosphatase 82 U/L (39-117); Anion Gap 12 (12-20); Aspartate Amino Transferase 16 U/L (5-31); Bilirubin Total 0.7 mg/dL (0.0-1.0); Blood Urea Nitrogen 7 mg/dL (9-16); Calcium 9.5 mg/dL (8.4-10.2); Carbon Dioxide 24 mmol/L (22-29); Chloride 110 mmol/L (96-108); Creatinine Clr Calc Pharmacy 92.7; Estimated Glomerular Filt Rate > 60; Glucose Random 98 mg/dL (60-115); Lipase 11 U/L (8-78); Sodium 142 mmol/L (135-145); Total Protein 6.9 g/dL (6.5-8.0)
[2022-09-13 16:17] LABS: Troponin-I High Sensitivity < 2.7 ng/L (<3.5-17.0)
[2022-09-13 16:31] LABS: TSH reflex Free T4 0.72 uIU/mL (0.32-4.0)
[2022-09-13 16:55] VITALS: BP 111/62; PULSE 64; RESP 18; TEMP 36.2; O2SAT 98
== END 2022-09-13 20:54 | disposition home or self-care (01) ==
PROVIDERS: Nurse Practitioner Family; Emergency Provider Emergency Medicine; PCP Internal Medicine
DX: R42 Dizziness and giddiness (principal); R00.2 Palpitations; R07.9 Chest pain, unspecified; R20.0 Anesthesia of skin
CPT/HCPCS: 36415; 80053; 83690; 84443; 84484; 85025; 85610; 93005; 99283; 99285

== ENCOUNTER → 2022-09-13 14:09 | Outpatient (BNV) | payer OTHER, MEDICAID, SELFPAY | PROVIDERS: Emergency Provider Emergency Medicine; PCP Internal Medicine; Visit Provider Internal Medicine | DX: R00.0 Tachycardia, unspecified (principal) | CPT/HCPCS: 93010 ==

== ENCOUNTER 2022-09-30 10:07 | Outpatient (AMB) | payer OTHER, MEDICAID, SELFPAY ==
--- NOTE | 2022-09-30 10:10 | MHC.OFFVIS ---
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 Last prior visit to our office was 05/08/2020 for this problem. Today she reports that she continues to have intermittent heart palpitations. She describes it that her heart beats fast and it causes her to be shaky and lightheaded. It happens without warning and episodes can last up to 10 minutes. She is currently wearing a cardiac event monitor until October 17 and tells me she has felt her palpitations with the monitor on. No chest discomfort at rest or with activity. No presyncope, syncope, falls. No shortness of breath, PND, orthopnea. 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 No routine exercise. Has had significant weight loss in the last year after stopping control pills. Weight loss is being followed by her PCP. Has seen Endocrinology and thyroid testing was normal. [facility] Medical History Anal fissure Eczema Epigastric pain Intermittent lightheadedness Intermittent palpitations Otalgia Surgical History No pertinent past surgical history Family History Father No problems noted. Mother No problems noted. Social History Housing: Apartment Alcohol intake: never Patient Tobacco Use Status: Never used Tobacco e-Cigarette/Vaping Use: Never Used service: No Current occupational status: employed Cognitive needs: No Hearing needs: No Vision needs: Yes Review of Systems Const All systems reviewed & are unremarkable except as noted in HPI and below ENT Reports dizziness Card Denies chest pain, Denies chest pain at rest, Denies chest pain with activity, Reports rapid heart rate, Denies pedal edema, Denies edema, Denies leg edema, Denies lightheadedness, Reports palpitations, Denies dyspnea, Denies dyspnea on exertion and Denies orthopnea Resp Denies cough, Denies dyspnea and Denies dyspnea on exertion GI Denies hematochezia and Denies change in stool character Musc Denies abnormal gait, Reports limited range of motion, Reports muscle cramps, Denies muscle weakness, Denies numbness, Denies radiating pain into limb, Denies stiffness and Denies tingling Neuro Denies abnormal gait, Reports dizziness, Denies numbness and Denies tingling Endo Reports palpitations Physical Exam Vital Signs: Last Vital Signs Pulse 73 09/30/22 10:11 BP 114/72 09/30/22 10:11 BMI result Body Mass Index 19.9 Const General: cooperative, healthy appearing, comfortable and no acute distress Orientation/consciousness: patient oriented x3 Neck Neck: Yes normal visual inspection Resp Effort & Inspection: normal respiratory effort Auscultation: clear to auscultation bilaterally, no crackles, no rales, no rhonchi and no wheezes Cardio Jugular venous distension: no JVD Rate: regular rate Rhythm: regular rhythm Heart sounds: S1 normal heart sound present, S2 normal heart sound present, no murmurs and no rubs Peripheral pulses: Peripheral pulses 2+ throughout Skin General skin exam: no rashes or lesions noted Neuro General: patient oriented x3 Extrem General: Yes normal to inspection, No no pedal edema and No calf tenderness Psych Appearance: grossly normal Mental Status: mental status grossly normal Speech and movement: Normal speech and movement present Assessment & Plan Assessment & Plan (1) Intermittent palpitations: Code(s): R00.2 - Palpitations Plan: Report of intermittent heart palpitations with feeling of flushing and lightheadedness. No presyncope, syncope, falls. Prior cardiac evaluation 2020 showed only occasional isolated PVCs. Echocardiogram done on 04/17 shows EF 60-65%, no valve abnormalities.? Holter monitor done on 04/17 shows sinus rhythm, occasional PVCs, less than 1%, average heart rate 75, heart rate range 45 to 133. Since then has had further ER evaluations for symptoms without known cardiac findings. [place] [facility] [place]. EKG shows sinus rhythm with incomplete right bundle branch block, rate 73. TSH 0.72. Today she presents for follow-up and states ongoing intermittent symptoms without pattern. She no longer drinks caffeinated beverages. She is currently wearing a 30 day cardiac event monitor which will be completed on 10/17/2022 for as ordered by her PCP. Will work on obtaining those results once available. Her symptoms do sound like possible SVT/atrial tach however not confirmed. Did review vagal maneuvers with her. Physical activity as tolerated, maintain good hydration. ED care if needed for recurrent concerning symptoms. In setting of normal EF not likely to be ventricular in origin. Offered reassurance. Plan to call her when MABLE results available. Cardiology office visit as needed (2) Intermittent lightheadedness: Code(s): R42 - Dizziness and giddiness (3) PVCs (premature ventricular contractions): Code(s): I49.3 - Ventricular premature depolarization Coding Level of Care Code Est Pt Level 3 (88251) Diagnoses Intermittent palpitations R00.2 Intermittent lightheadedness R42 PVCs (premature ventricular contractions) I49.3 Time Spent (min) 22 Comment Chart review, documentation, interview, assessment
[2022-09-30 10:11] VITALS: BP 114/72; PULSE 73; BMI 19.9
== END 2022-09-30 10:48 | disposition home or self-care (01) ==
PROVIDERS: PCP Internal Medicine; Referring Provider Internal Medicine; Visit Provider Nurse Practitioner Family
DX: R00.2 Palpitations (principal); R42 Dizziness and giddiness; I49.3 Ventricular premature depolarization
CPT/HCPCS: 99213

== ENCOUNTER → 2022-09-30 10:07 | Outpatient (BNVA) | payer OTHER, MEDICAID, SELFPAY | PROVIDERS: PCP Internal Medicine; Referring Provider Internal Medicine; Visit Provider Nurse Practitioner Family ==